=== PATIENT | female | born 1970 | race African-American/Black ===

== ENCOUNTER 2019-12-13 14:36 | Inpatient (IN) | payer MEDICAID ==
[~2019-12-13] VITALS: Ht 157.5 cm; Wt 87.5 kg
[2019-12-13 15:35] LABS: BASOPHILS 0.1 % (0-2); EOSINOPHILS 3.1 % (0-7); HEMATOCRIT 34.8 % (36.0-48.0); HEMOGLOBIN 11.5 g/dL (12-16); IMMATURE GRANULOCYTES 0.3 % (0-5); LYMPHOCYTES 31.5 % (15-50); MCH 26.9 pg (26.0-34.0); MCV 81.3 fL (80.0-100.0); MEAN PLATELET VOLUME 10.3 fL (7.4-10.4); MONOCYTES 5.7 % (2-11); NEUTROPHILS 59.3 % (40-80); PLATELET COUNT 221 10x3/uL (130-400); RBC 4.28 10x6/uL (4.00-5.40); RDW 15.7 % (11.5-14.5)
[2019-12-13 15:41] LABS: CALC OSMOLALITY 328 mosm/kg (275-300); CALCIUM 8.6 mg/dL (8.5-10.1); CARBON DIOXIDE 15.5 mmol/L (21.0-32.0); CHLORIDE - SERUM 105 mmol/L (98-107); CREATININE - SERUM 14.8 mg/dL (0.6-1.3); GLUCOSE 280 mg/dL (74-106); POTASSIUM - SERUM 5.2 mmol/L (3.5-5.1); SODIUM 141 mmol/L (136-145); UREA NITROGEN 118 mg/dL (7-18); eGFR NON AFRICAN AMERICAN 3 mL/min (90-120)
[2019-12-13 15:58] LABS: ALBUMIN 3.6 g/dL (3.4-5.0); ALKALINE PHOSPHATASE 108 U/L (30-120); ALT (SGPT) 15 U/L (10-68); BILIRUBIN - TOTAL 0.34 mg/dL (0.2-1.3); CKMB 6.2 U/L (0.0-3.6); CREATINE KINASE 200 UL (21-215); MAGNESIUM - SERUM 2.5 mg/dL (1.8-2.4); PRO BNP 6342 pg/mL (0-125); PROTEIN - SERUM 7.9 g/dL (6.4-8.2)
[2019-12-13 16:00] LABS: TROPONIN-I < 0.017 ng/mL (0.000-0.060)
--- NOTE | 2019-12-13 19:08 | NUR ---
REPORT TO FANNIE GARCIA AT THIS TIME.
[2019-12-13 20:30] VITALS: BP 195/95
[2019-12-14] VITALS (9 sets, daily range): BP systolic 141–189; BP diastolic 67–102; Ht 157.5 cm; Wt 87.5 kg
--- NOTE | 2019-12-14 00:17 | NUR ---
RECEIVED REPORT FROM TINY GARCIA IN ER AT 2214. ARRIVED TO FLOOR ON STRETCHER AT 2230. ALERT AND ORIENTED X4. REQUIRES WALKER AND PARTIAL ASSIT TO AMB TO B/R. ALL TOES AMPUTATED ON LEFT FOOT. DIME SIZE CALLUS ON PAD OF LEFT FOOT. IV TO RIGHT HAND SL.. LT ARM RESERVE R/T AVF. GOOD BRUIT AND TRILL. STATES SHE HAS NOT HAD DIALYSIS IN [address] RODRIGUEZ HERE TO SEE PATIENT. ALLERGY BAND AND FALL RISK BAND ON WRIST. DTR STATES SHE WILL STAY WITH HER MOTHER. ICE GIVEN TO PT. SOME EDEMA TO LOWER EXTREMITIES. PT STATES SHE IS LEGALLY TYRON. DENIES ANY NEEDS AT THIS TIME. ASSESSMENT COMPLETED.
--- NOTE | 2019-12-14 07:07 | NUR ---
PT LYING IN BED EYES CLOSED. CHEST RISING AND FALLING. DAUGHTER AT BEDSIDE. BED LOW. CL IN REACH. WILL CONTINUE WITH POC. DR. DODD STATES TO ME HE WANTS PT TO BE FIRST FOR HD TODAY. I VERBALIZED UNDERSTANDING.
[2019-12-14 07:19] LABS: INR 1.07 (0.85-1.17); PROTIME 13.8 SECONDS (11.6-15.0)
[2019-12-14 07:20] LABS: APTT 31.5 SECONDS (22.8-39.4)
[2019-12-14 07:30] LABS: BASOPHILS 0.1 % (0-2); EOSINOPHILS 3.4 % (0-7); HEMATOCRIT 27.9 % (36.0-48.0); IMMATURE GRANULOCYTES 0.3 % (0-5); LYMPHOCYTES 39.9 % (15-50); MCH 25.9 pg (26.0-34.0); MCHC 32.3 g/dL (31.0-37.0); MCV 80.2 fL (80.0-100.0); MEAN PLATELET VOLUME 10.7 fL (7.4-10.4); MONOCYTES 7.8 % (2-11); NEUTROPHILS 48.5 % (40-80); PLATELET COUNT 213 10x3/uL (130-400); RBC 3.48 10x6/uL (4.00-5.40); RDW 15.7 % (11.5-14.5); WBC 7.3 10x3/uL (4.8-10.8)
[2019-12-14 07:55] LABS: ALBUMIN 2.9 g/dL (3.4-5.0); ANION GAP 20.8 mmol/L (8-16); BILIRUBIN - TOTAL 0.28 mg/dL (0.2-1.3); CALCIUM 8.2 mg/dL (8.5-10.1); CARBON DIOXIDE 18.4 mmol/L (21.0-32.0); CREATININE - SERUM 15.7 mg/dL (0.6-1.3); MAGNESIUM - SERUM 2.5 mg/dL (1.8-2.4); PHOSPHOROUS 7.2 mg/dL (2.5-4.9); POTASSIUM - SERUM 5.2 mmol/L (3.5-5.1); THYROID STIMULATING HORMONE 1.79 uIU/mL (0.36-3.74)
[2019-12-14 07:57] LABS: % SATURATION 36 % (15-55); IRON 55 ug/dl (35-150); TOTAL IRON BIND CAPACITY 152 ug/dl (260-445); UNSAT IRON BIND CAPACITY 97 ug/dl (150-375)
--- NOTE | 2019-12-14 08:08 | NUR ---
CALLED AND SPOKE WITH CIARAN GARCIA IN DIALYSIS THAT DR. DODD STATES HE WANTS PT TO BE FIRST AND SHE VERBALIZED UNDERSTANDING.
--- NOTE | 2019-12-14 09:40 | NUR ---
PT TAKEN TO DIALYSIS VIA BED.
--- NOTE | 2019-12-14 13:40 | NUR ---
PT RECEIVING DIALYSIS ON DIALYSIS UNIT. DIALYSIS NURSE CALLED [facility] FOR STAT BS TO BE CHECKED. ED RN WENT DOWN TO DIALYSIS AND CHECKED BS AND IT WAS 167. DIALYSIS NURSE CALLED [facility] GONZALES D/T PT BEING SLOW TO RESPOND AND CONFUSED SUDDENLY. SVITLANA GONZALES STATED TO DIALYSIS NURSE TO CALLED [facility]. THIS NURSE ALONG WITH [facility] TEAM ARRIVED AT THIS TIME TO DIALYSIS UNIT. PHONE WAS GIVEN TO ME TO SPEAK WITH SVITLANA GONZALES SHE STATED TO ME TO ORDER A STAT BMP, WHEN PT GETS BACK TO FLOOR CHECK BLOOD PRESSURE AND CALL BACK IN AN HOUR TO LET HER KNOW HOW PT IS DOING AND IF SHE HAS NOT IMPROVED SHE WILL ORDER A CAT SCAN OF HER HEAD. I VERBALIZED UNDERSTANDING. AT 1345 DR. OLIVIA ARRIVED TO UNIT AND ASSESSED PT AND STATES SHE HAS DYSEQUILIBRIUM FROM HAVING TOO MUCH FLUID PULLED OFF TOO FAST. HE THEN ASKED DIALYSIS NURSE HOW MUCH SHE TOOK OFF AND SHE STATED 4L AND HE STATED THAT WAS TOO MUCH. SHE VERBALIZED UNDERSTANDING TO HIM AND STATED SHE WAS JUST FOLLOWING DOCTORS ORDERS. HE DID NOT GIVE A RESPONSE TO HER. BP NOW 196/100 HR 83. MARINE STEWARD FROM MED 2 BROUGHT GLOBAL ANALYTICS HEAD AND PLACED ON PT. PT IS RUNNING SINUS RHYTHM. WILL TAKE PT BACK UP TO ROOM 2104.
--- NOTE | 2019-12-14 13:50 | MORECARE ---
CASE MANAGEMENT DISCHARGE SUMMARY PATIENT: JUSTA COLIN UNIT: [id number] ADM DATE: 12/13/19 AGE: 49 : [birth year] SEX: F ROOM/BED: D.2104 AUTHOR: JESSIE KENNY PHYSICIAN: REFERRING PHYSICIAN: EDGAR OLIVIA MD DATE OF SERVICE: 12/14/19 Discharge Plan Patient Name: JUSTA COLIN Facility: [facility]:[place] : 1970 Planned Disposition: Anticipated Discharge Date: Discharge Date: Expected LOS: Initial Reviewer: [id number] Initial Review Date: 12/14/2019 Generated: 12/14/19 2:50 pm Comments DCP- Discharge Planning Updated by [id number]: Randy Godfrey on 12/14/19 12:[address] Patient Name: JUSTA COLIN Admission Status: ER Accout number: [id number] Admission Date: 12-13-2019 : 1970 Admission Diagnosis: Attending: EDGAR OLIVIA Current LOS: 1 Anticipated DC Date: Planned Disposition: Primary Insurance: UNINSURED DISCOUNT PLAN Discharge Planning Comments: CM RECEIVED ORDER FOR PLACEMENT, ATTEMPTED TO MEET WITH PT FOR INITIAL ASSESSMENT OF DISCHARGE NEEDS. NOTIFED PT IS IN DIALYSIS PT WAS NOT IN ROOM AT APPROXIMATELY 1300 HOURS. CM TO ATTEMPT TO ADDRESS ORDER AND COMPLETE ASSESSMENT OF PT AT A LATER TIME. Flight Engineer: Randy Godfrey Patient Name: JUSTA COLIN Page [phone] at 1350 All edits/amendments must be made on the electronic document DICTATION DATE: 12/14/19 1350 TRUST MANAGER ASSISTANT: AMRIT 12/14/19 1350 RPT#: [id number] DC DATE: STATUS: ADM IN [facility] [address] [place] [address] END OF REPORT
--- NOTE | 2019-12-14 14:10 | NUR ---
PT BROUGHT BACK TO FLOOR VIA BED. STILL NOT ALERT AND ORIENTED AND SLOW TO RESPOND AND CAN NOT GIVE ANSWERS TO QUESTIONS. PT'S DAUGHTER AT BEDSIDE AND EXPLAINED TO HER THAT PT WAS RECEIVING DIALYSIS AND THEY TOOK TOO MUCH OFF TOO QUICKLY AND SHE HAD MENTAL STATUS CHANGES AND DIALYSIS CALLED A [facility] ANDTHE DOCTOR CAME DOWN THERE AND HE STATES IT WILL TAKE A DAY OR TWO FOR PT TO COME BACK AROUND TO HER NORMAL SELF. I ALSO TSATED TO HER TO TAKE IT EASY ON PT WITH EATING AND DRINKING UNTIL SHE COMES MORE ALERT AND AWAKE. DAUGHTER VERBALIZED UNDERSTANDING. CHECKED BP AND IT IS 189/102. IV HYDRALAZINE GIVEN THROUGH RIGHT HAND 22G IV. WILL CONTINUE TO MONITOR. BED LOW. CL IN REACH.
[2019-12-14 14:45] LABS: CREATININE - SERUM 6.5 mg/dL (0.6-1.3); POTASSIUM - SERUM 3.3 mmol/L (3.5-5.1)
[2019-12-14 14:46] LABS: ANION GAP 15.4 mmol/L (8-16); CALCIUM 9.2 mg/dL (8.5-10.1); CARBON DIOXIDE 25.9 mmol/L (21.0-32.0)
--- NOTE | 2019-12-14 14:57 | NUR ---
PT MENTAL STATUS STILL SLOW TO RESPOND AND CANNOT ANSWER QUESTIONS AND STILL CONFUSED. CALLED SVITLANA GONZALES SHE STATED FOR ME TO DO AND DID NTO RECEIVE AN ANSWER BUT LEFT VOICEMAIL.
--- NOTE | 2019-12-14 15:52 | NUR ---
NOTIFIED SVITLANA GONZALES OF PT'S STATUS AND BP AWAITING RESPONSE.
--- NOTE | 2019-12-14 15:58 | NUR ---
SVITLANA GONZALES STATES IF DR. OLIVAI DOES NOT WANT CT SCAN THEN SHE WON'T ORDER ONE JUST CONTINUE TO MONITOR PT.
--- NOTE | 2019-12-14 17:13 | NUR ---
SCD'S PLACED ON PT'S LEGS BILATERALLY.
--- NOTE | 2019-12-14 17:15 | NUR ---
RESTS IN BED WITH EYES CLOSED. CALL LIGHT IN REACH. WILL MONITOR NEEDS.
[2019-12-15 05:17] LABS: BASOPHILS 0.2 % (0-2); EOSINOPHILS 2.9 % (0-7); HEMATOCRIT 30.4 % (36.0-48.0); HEMOGLOBIN 9.9 g/dL (12-16); IMMATURE GRANULOCYTES 0.2 % (0-5); LYMPHOCYTES 42.3 % (15-50); MCH 26.1 pg (26.0-34.0); MCHC 32.6 g/dL (31.0-37.0); MEAN PLATELET VOLUME 10.4 fL (7.4-10.4); MONOCYTES 8.6 % (2-11); NEUTROPHILS 45.8 % (40-80); PLATELET COUNT 210 10x3/uL (130-400); RDW 15.5 % (11.5-14.5); WBC 8.4 10x3/uL (4.8-10.8)
[2019-12-15 05:40] LABS: ALBUMIN 2.9 g/dL (3.4-5.0); BILIRUBIN - TOTAL 0.43 mg/dL (0.2-1.3); CALCIUM 8.3 mg/dL (8.5-10.1); CARBON DIOXIDE 23.9 mmol/L (21.0-32.0); PHOSPHOROUS 5.4 mg/dL (2.5-4.9); PROTEIN - SERUM 6.8 g/dL (6.4-8.2)
[2019-12-15 05:44] LABS: CREATININE - SERUM 8.8 mg/dL (0.6-1.3); POTASSIUM - SERUM 3.9 mmol/L (3.5-5.1)
--- NOTE | 2019-12-15 07:15 | PN ---
PATIENT:JUSTA COLIN MEDICAL RECORD: [id number] LOCATION:D. D.210 ADMISSION DATE: 12/13/19 PROGRESS NOTE DATE OF SERVICE: 12/14/2019 SUBJECTIVE: This is a 49-year-old female who was admitted to the hospital yesterday after not receiving dialysis for reportedly 2 weeks. She reports that she has relocated here from [place], [place] from a [place] dialysis facility there. The patient underwent dialysis today and had a type of reported reaction, which sounds like it is a conversion reaction of some sort rather than a dysequilibrium. The family member was in the room with the patient when evaluated. The patient upon my evaluation had some inappropriate affect and giggling or laughing, really odd type of behavior while I was discussing in this. The family member said that the patient did return to her baseline. The dialysis nurses informed me later this evening that what had transpired and it really did not sound like it was significant for a true dysequilibrium syndrome. This patient has diabetes type 2 with multiple in-organ complications including end-stage renal disease, retinopathy, nephropathy and has not again been apparently very compliant with dialysis. We are waiting for results and we are waiting for reportedly placement in a [facility]. The patient has a left foot transmetatarsal amputation. She has been evaluated, treatment plan reviewed, and discussed again about fall precautions and her role and goal of care. OBJECTIVE: VITAL SIGNS: Today have been in the 160s and 170s. LABORATORY DATA: Reveal potassium 5.2, sodium 140, creatinine 15.7. Prior to dialysis, bicarbonate was 18.4, glucose 177. ProBNP was 6342 on admission. Hemoglobin was 9.0. INR 1.07. IMPRESSION: 1. End-stage renal disease status post resuming dialysis today. 2. Suspect some type of anxiety or psychiatric disorder with the odd behavior that the patient exhibited. 3. Diabetes type 2 with complications. 4. Metabolic acidosis. 5. Obstructive sleep apnea. 6. Obesity. 7. Hyperparathyroidism of renal disease. 8. Volume overload and congestive heart failure. 9. Incomplete database. RECOMMENDATIONS: Attempt dialysis support again. Counseling has been done about plans. May need to have mental health evaluation to evaluate the patient to see if we are missing anything that would be of benefit or opportunity to help the patient. TRANSINT:[id number] Voice Confirmation ID: [id number] DOCUMENT ID: [id number] PROGRESS NOTE [id number] JUSTA COLIN PAUL E., MD at 0715 CC: YOLIS DODD MD [id number] DICTATION DATE: 12/14/192114 [address] REPORTER: 12/15/19 0659 ADM IN [facility] [address] [place] [id number]
--- NOTE | 2019-12-15 07:15 | CN ---
PATIENT NAME:JUSTA COLIN MEDICAL RECORD: [id number] : [birth year] LOCATION:DShea D.2104 ADMIT DATE: 12/13/19 ACCOUNT: [id number] CONSULTING PHYSICIAN: RAD RODRIGUEZ MD REFERRING PHYSICIAN: EDGAR OLIVIA MD DATE OF CONSULTATION: 12/13/2019 HISTORY OF PRESENT ILLNESS: This patient presented to the Emergency Room after being here in the area for over a week. She says she had not had dialysis in 2 weeks and came from [place], [place] from the [facility] facility. The patient says she urgently moved down here and has been waiting for [facility] to contact her for dialysis support. Nephrology services were contacted to further evaluate and dialyze the patient and need for dialysis support. The patient is with the family member present in the room and nurse was present for the entire interview. She is not in any distress at this time. She reports no other complaints. PAST MEDICAL AND SURGICAL HISTORY: Pertinent for: 1. Left upper arm graft placement with a declot procedure approximately 2 weeks ago per her report. 2. End-stage renal disease now for about a year, on dialysis support through the left upper arm access. She denies any home dialysis support or peritoneal dialysis support. 3. 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 4. Abdominal obesity. 5. Obstructive sleep apnea. 6. Anemia. 7. Iron deficiency. 8. Anemia of chronic kidney disease and iron deficiency. 9. Hyperparathyroidism of renal disease. SOCIAL HISTORY: No tobacco or ethanol use. ALLERGIES: REPORTED LISINOPRIL. MEDICATIONS: Include clonidine. At this time, we are still reviewing prior medical records. PHYSICAL EXAMINATION: VITAL SIGNS: Reveal temperature 97.3 degrees, pulse rate 90, blood pressure 182/107, pulse ox 94, O2 sat. GENERAL: She is alert, appropriate, very pleasant. She has anasarca and you can tell that she has retinopathy in both eyes. CARDIAC: She has no lift, but she has an S4 present. She has no heave on her cardiac exam. ABDOMEN: Obese, but nontender and soft. Left upper arm graft with thrill and bruit. EXTREMITIES: She has no hand ischemia. SKIN: Without any bruising or ecchymosis. She is breathing without any difficulty. CONSULT REPORT [id number] [facility] DIAGNOSTIC TESTS: Reveal white cell count 8, hemoglobin 11.5 and platelet count is 221. Sodium 141, potassium 5.2, chloride 105, bicarbonate 15.5, BUN is 118, creatinine 14.8, glucose 280, calcium 8.6, magnesium 2.5. CK of 200, alkaline phosphatase is 108. Troponin less than 0.017. Total protein 7.9, albumin 3.6. IMPRESSION: 1. End-stage renal disease with missed dialysis for about 2 weeks. 2. Volume overload with congestive heart failure, decompensated with elevated BNP of 6342. 3. Moderate malnutrition. 4. Abdominal obesity. 5. Obstructive sleep apnea. 6. Hyperparathyroidism, renal disease. 7. Anemia of iron deficiency and chronic renal disease. 8. Left upper arm graft placement with previous declot procedure about 2 weeks ago per report. 9. Incomplete database at present. RECOMMENDATIONS: Dialysis support for tomorrow. The patient was trying to get into the [facility] for chronic dialysis support. Continue support and monitor for any other needs. As far as blood pressure control, it is probably will be volume responsive with dialysis. PTH level will need to be checked. TRANSINT:[id number] Voice Confirmation ID: [id number] DOCUMENT ID: [id number] RAD RODRIGUEZ MD at 0715 CC: YOLIS DODD MD [id number] DICTATION DATE: 12/14/19 0013 FRAMING MANAGER: 12/14/19 0726 ADM IN [facility] [address] [place] [address]
[2019-12-15 08:47] VITALS: BP 137/59
--- NOTE | 2019-12-15 09:54 | MORECARE ---
CASE MANAGEMENT DISCHARGE SUMMARY PATIENT: JUSTA COLIN UNIT: [id number] ADM DATE: 12/13/19 AGE: 49 : [birth year] SEX: F ROOM/BED: D.2104 AUTHOR: EFRAÍN,DOC PHYSICIAN: REFERRING PHYSICIAN: EDGAR OLIVIA MD DATE OF SERVICE: 12/15/19 Discharge Plan Patient Name: JUSTA COLIN Facility: [facility]:[place] : 1970 Planned Disposition: Anticipated Discharge Date: Discharge Date: Expected LOS: Initial Reviewer: [email or web address] Initial Review Date: 12/14/2019 Generated: 12/15/19 10:53 am Comments DCP- Discharge Planning Updated by [email or web address]: Randy Godfrey on 12/15/19 8:[address] Patient Name: JUSTA COLIN Encounter No: [id number] : 1970 Primary Insurance: UNINSURED DISCOUNT PLAN Anticipated DC Date: Planned Disposition: External Planned Provider: : DCP follow-up note: CM ATTEMPTED TO MEET WITH PT FOR INITIAL ASSESSMENT OF DISCHARGE NEEDS. PT WAS IN THE BATHROOM AT APPROXIMATELY 0930 HOURS. CM TO ATTEMPT ASSESSMENT OF PT AT A LATER TIME. TONI Lujan DCP- Discharge Planning Updated by [email or web address]: Randy Godfrey on 12/15/19 8:[address] Patient Name: JUSTA COLIN Encounter No: [id number] : 1970 Primary Insurance: UNINSURED DISCOUNT PLAN Anticipated DC Date: Planned Disposition: External Planned Provider: : LATE ENTRY FROM 12-14-19, 1452 HOURS: DCP follow-up note: ON 12-14-19, CM ATTEMPTED TO MEET WITH PT FOR INITIAL ASSESSMENT OF DISCHARGE NEEDS. PT WAS NOT IN ROOM AT APPROXIMATELY 1452 HOURS. CM TO ATTEMPT ASSESSMENT OF PT AT A LATER TIME. TONI LUJAN DCP- Discharge Planning Updated by [id number]: Randy Godfrey on 12/14/19 12:[address] Patient Name: JUSTA COLIN Admission Status: ER Accout number: [id number] Admission Date: 12-13-2019 : 1970 Admission Diagnosis: Attending: EDGAR OLIVIA Current LOS: 1 Anticipated DC Date: Planned Disposition: Primary Insurance: UNINSURED DISCOUNT PLAN Discharge Planning Comments: CM RECEIVED ORDER FOR PLACEMENT, ATTEMPTED TO MEET WITH PT FOR INITIAL ASSESSMENT OF DISCHARGE NEEDS. NOTIFED PT IS IN DIALYSIS PT WAS NOT IN ROOM AT APPROXIMATELY 1300 HOURS. CM TO ATTEMPT TO ADDRESS ORDER AND COMPLETE ASSESSMENT OF PT AT A LATER TIME. Tool Filer: Randy Godfrey Last DP export: 12/14/19 12:50 p Patient Name: JUSTA COLIN Page [id number] at 0954 All edits/amendments must be made on the electronic document DICTATION DATE: 12/15/19952 EXTERMINATOR HELPER: AMRIT 12/15/1954 RPT#: [id number] DC DATE: STATUS: ADM IN [facility] [address] [place] [address] END OF REPORT
[2019-12-15 11:10] LABS: HEPATITIS C ANTIBODY <0.1 S/CO RAT (0.0-0.9)
[2019-12-15 12:42] VITALS: BP 152/72
--- NOTE | 2019-12-15 14:30 | MORECARE ---
CASE MANAGEMENT DISCHARGE SUMMARY PATIENT: JUSTA COLIN UNIT: [id number] ADM DATE: 12/13/19 AGE: 49 : 68 SEX: F ROOM/BED: D.2104 AUTHOR: EFRAÍN,DOC PHYSICIAN: REFERRING PHYSICIAN: EDGAR OLIVIA MD DATE OF SERVICE: 12/15/19 Discharge Plan Patient Name: JUSTA COLIN Facility: [facility]:[place] : 1970 Planned Disposition: Home Anticipated Discharge Date: Discharge Date: Expected LOS: Initial Reviewer: [email or web address] Initial Review Date: 12/14/2019 Generated: 12/15/19 3:29 pm DCP- Discharge Planning Updated by [id number]: Randy Godfrey on 12/15/19 8:[address] Patient Name: JUSTA COLIN Encounter No: [id number] : 1970 Primary Insurance: UNINSURED DISCOUNT PLAN Anticipated DC Date: Planned Disposition: External Planned Provider: : DCP follow-up note: CM ATTEMPTED TO MEET WITH PT FOR INITIAL ASSESSMENT OF DISCHARGE NEEDS. PT WAS IN THE BATHROOM AT APPROXIMATELY 0930 HOURS. CM TO ATTEMPT ASSESSMENT OF PT AT A LATER TIME. TONI Lujan DCP- Discharge Planning Updated by [email or web address]: Randy Godfrey on 12/15/19 8:[address] Patient Name: JUSTA COLIN Encounter No: [id number] : 1970 Primary Insurance: UNINSURED DISCOUNT PLAN Anticipated DC Date: Planned Disposition: External Planned Provider: : LATE ENTRY FROM 12-14-19, 1452 HOURS: DCP follow-up note: ON 12-14-19, CM ATTEMPTED TO MEET WITH PT FOR INITIAL ASSESSMENT OF DISCHARGE NEEDS. PT WAS NOT IN ROOM AT APPROXIMATELY 1452 HOURS. CM TO ATTEMPT ASSESSMENT OF PT AT A LATER TIME. TONI LUJAN DCP- Discharge Planning Updated by [email or web address]: Randy Godfrey on 12/14/19 12:[address] Patient Name: JUSTA COLIN Admission Status: ER Accout number: [id number] Admission Date: 12-13-2019 : 1970 Admission Diagnosis: Attending: EDGAR OLIVIA Current LOS: 1 Anticipated DC Date: Planned Disposition: Primary Insurance: UNINSURED DISCOUNT PLAN Discharge Planning Comments: CM RECEIVED ORDER FOR PLACEMENT, ATTEMPTED TO MEET WITH PT FOR INITIAL ASSESSMENT OF DISCHARGE NEEDS. NOTIFED PT IS IN DIALYSIS PT WAS NOT IN ROOM AT APPROXIMATELY 1300 HOURS. CM TO ATTEMPT TO ADDRESS ORDER AND COMPLETE ASSESSMENT OF PT AT A LATER TIME. Tire Room Supervisor: Randy Godfrey DCPIA - Discharge Planning Initial Assessment Updated by [email or web address]: Randy Godfrey on 12/15/19 2:24 pm * Is the patient Alert and Oriented? Yes * How many steps to enter\exit or inside your home? * PCP NONE * Pharmacy [facility] IN [place] * Preadmission Environment Home with Family * ADLs Partial Dependent * Partial ADLs (Assistance needed) Medication Management * Equipment Walker * Other Equipment REPORTS WALKER IS BROKEN NO MEDICAL EQUIPMENT PROVIDER PREFERENCE * List name and contact numbers for known caregivers / representatives who currently or will assist patient after discharge: ALFREDO CAT, DTR, FRANCISCO JAVIER COLIN, SISTER, * Verbal permission to speak to the caregivers and representatives has been obtained from the patient. Yes * Community resources currently utilized Other * Please name any agencies selected above. LAST OUTPATIENT DIALYSIS UNIT IN [place], [place]. [facility], [facility] * Additional services required to return to the preadmission environment? Yes * Can the patient safely return to the preadmission environment? Yes * Has this patient been hospitalized within the prior 30 days at any hospital? No Last DP export: 12/15/19 8:53 a Patient Name: JUSTA COLIN Page [phone] at 1430 All edits/amendments must be made on the electronic document DICTATION DATE: 12/15/19 142 FLUXER: AMRIT 12/15/19 142 RPT#: [id number] DC DATE: STATUS: ADM IN [address] [place] [address] END OF REPORT
--- NOTE | 2019-12-15 14:40 | MORECARE ---
CASE MANAGEMENT DISCHARGE SUMMARY PATIENT: JUSTA COLIN UNIT: [id number] ADM DATE: 12/13/19 AGE: 49 : 68 SEX: F ROOM/BED: D.2104 AUTHOR: EFRAÍN,DOC PHYSICIAN: REFERRING PHYSICIAN: EDGAR OLIVIA MD DATE OF SERVICE: 12/15/19 Discharge Plan Patient Name: JUSTA COLIN Facility: [facility]:[place] : 1970 Planned Disposition: Home Anticipated Discharge Date: Discharge Date: Expected LOS: Initial Reviewer: [email or web address] Initial Review Date: 12/14/2019 Generated: 12/15/19 3:40 pm DCP- Discharge Planning Updated by [id number]: Randy Godfrey on 12/15/19 1:[address] Patient Name: JUSTA COLIN Admission Status: ER Accout number: [id number] Admission Date: 12-13-2019 : 1970 Admission Diagnosis: Attending: EDGAR OLIVIA Current LOS: 2 Anticipated DC Date: Planned Disposition: Home Primary Insurance: MEDICAID [place] PENDING Discharge Planning Comments: CM MET WITH PT IN ROOM TO DISCUSS ORDER FOR PLACEMENT, DISCHARGE PLANNING AND NEEDS. PT DECLINES ANY PLACEMENT, REPORTS HAVING SAFE PLACE TO STAY; REPORTS LIVING AT HOME DEPENDENTLY WITH HER SISTER IN [place]. PT'S SISTER AND DAUGHTER HELP PT WITH MEDICATION MANAGEMENT. CM VERFIED HOME ADDRESS OF [address] [place] [address] IN [place]. PT HAS A BROKEN WALKER WITH NO MEDICAL EQUIPMENT PROVIDER PREFERENCE AND NO OUTSIDE SERVICES ASSISTING IN THE HOME. PT REPORTS MOVING FROM [place] ONE WEEK AGO ON EMERGENCY BASIS. PT DID NOT HAVE TIME TO ARRANGE OUTPATIENT DIALYSIS, STATES SHE ASKED [facility]. TO SEND REC[facility]DS TO [facility] IN [place]. PT HAS NOT CALLED SOCIAL SECURITY DISABILITY TO CHANGE HER ADDRESS OF YET BUT PLANS TO DO SO TOMORROW. PT STATES SHE HAD MEDICAID IN [place] AND MET WITH A ANDREAS FROM [facility] WHO IS GOING TO HELP AND DIRECTED HER TO CALL SOCIAL SECURITY. CM PROVIDED PT WITH THE NATIONAL SOCIAL SECURITY NUMBER WELL THE [facility] OF SOCIAL SECURITY PHONE NUMBER. CM DISCUSSED AVAILABILITY OF HOME HEALTH, REHAB SERVICES AND MEDICAL EQUIPMENT. PT DENIES DISCHARGE NEEDS, REPORTS HER FAMILY WILL PICK HER UP FOR DISCHARGE HOME. CM REVIEWED CHART AND SPOKE TO JANET MACKEY WHO PROVIDED ORDER FOR OUTPATIENT DIALYSIS UNIT PLACEMENT. CM NOTIFIED [facility], , AND FAXED FACE SHEET TO [facility] AT [phone]. PT DECLINES PLACEMENT, REPORTS PLAN TO DISCHARGE HOME WITH ADULT DAUGHTER AND SISTER. CM WAITING OUTPATIENT DIALYSIS CLINIC ARRANGEMENT. Choke Setter: Randy Godfrey DCP- Discharge Planning Updated by [email or web address]: Randy Godfrey on 12/15/19 8:[address] Patient Name: JUSTA COLIN Encounter No: [id number] : 1970 Primary Insurance: UNINSURED DISCOUNT PLAN Anticipated DC Date: Planned Disposition: External Planned Provider: : DCP follow-up note: CM ATTEMPTED TO MEET WITH PT FOR INITIAL ASSESSMENT OF DISCHARGE NEEDS. PT WAS IN THE BATHROOM AT APPROXIMATELY 0930 HOURS. CM TO ATTEMPT ASSESSMENT OF PT AT A LATER TIME. TONI Lujan DCP- Discharge Planning Updated by [email or web address]: Randy Godfrey on 12/15/19 8:[address] Patient Name: JUSTA COLIN Encounter No: [id number] : 1970 Primary Insurance: UNINSURED DISCOUNT PLAN Anticipated DC Date: Planned Disposition: External Planned Provider: : LATE ENTRY FROM 12-14-19, 1452 HOURS: DCP follow-up note: ON 12-14-19, CM ATTEMPTED TO MEET WITH PT FOR INITIAL ASSESSMENT OF DISCHARGE NEEDS. PT WAS NOT IN ROOM AT APPROXIMATELY 1452 HOURS. CM TO ATTEMPT ASSESSMENT OF PT AT A LATER TIME. TONI LUJAN DCP- Discharge Planning Updated by [email or web address]: Randy Godfrey on 12/14/19 12:[address] Patient Name: JUSTA COLIN Admission Status: ER Accout number: [id number] Admission Date: 12-13-2019 : 1970 Admission Diagnosis: Attending: EDGAR OLIVIA Current LOS: 1 Anticipated DC Date: Planned Disposition: Primary Insurance: UNINSURED DISCOUNT PLAN Discharge Planning Comments: CM RECEIVED ORDER FOR PLACEMENT, ATTEMPTED TO MEET WITH PT FOR INITIAL ASSESSMENT OF DISCHARGE NEEDS. NOTIFED PT IS IN DIALYSIS PT WAS NOT IN ROOM AT APPROXIMATELY 1300 HOURS. CM TO ATTEMPT TO ADDRESS ORDER AND COMPLETE ASSESSMENT OF PT AT A LATER TIME. Choke Setter: Randy Godfrey DCPIA - Discharge Planning Initial Assessment Updated by [email or web address]: Randy Godfrey on 12/15/19 2:24 pm * Is the patient Alert and Oriented? Yes * How many steps to enter\exit or inside your home? * PCP NONE * Pharmacy [facility] IN [place] * Preadmission Environment Home with Family * ADLs Partial Dependent * Partial ADLs (Assistance needed) Medication Management * Equipment Walker * Other Equipment REPORTS WALKER IS BROKEN NO MEDICAL EQUIPMENT PROVIDER PREFERENCE * List name and contact numbers for known caregivers / representatives who currently or will assist patient after discharge: ALFREDO CAT, DTR, FRANCISCO JAVIER COLIN, SISTER, * Verbal permission to speak to the caregivers and representatives has been obtained from the patient. Yes * Community resources currently utilized Other * Please name any agencies selected above. LAST OUTPATIENT DIALYSIS UNIT IN [place], [place]. [facility], [facility] * Additional services required to return to the preadmission environment? Yes * Can the patient safely return to the preadmission environment? Yes * Has this patient been hospitalized within the prior 30 days at any hospital? No External Providers External Provider: OTHER-OTHER Next Contact Date: 12/15/2019 Service Request Date: Service Type: Resolution: Reviewer: Comments: Last DP export: 12/15/19 1:30 p Patient Name: JUSTA COLIN Page [phone] at 1440 All edits/amendments must be made on the electronic document DICTATION DATE: 12/15/19 1440 RECEIVING TELLER: AMRIT 12/15/19 1440 RPT#: [id number] DC DATE: STATUS: ADM IN [facility] [address] [place] [address] END OF REPORT
[2019-12-15 17:14] VITALS: BP 127/49
[2019-12-15 20:30] VITALS: BP 139/69
[2019-12-16 05:15] LABS: BASOPHILS 0.1 % (0-2); EOSINOPHILS 3.8 % (0-7); HEMATOCRIT 29.8 % (36.0-48.0); HEMOGLOBIN 9.7 g/dL (12-16); IMMATURE GRANULOCYTES 0.2 % (0-5); MCH 26.4 pg (26.0-34.0); MCHC 32.6 g/dL (31.0-37.0); MCV 81.2 fL (80.0-100.0); MEAN PLATELET VOLUME 10.8 fL (7.4-10.4); MONOCYTES 10.8 % (2-11); NEUTROPHILS 38.1 % (40-80); PLATELET COUNT 221 10x3/uL (130-400); RBC 3.67 10x6/uL (4.00-5.40); RDW 15.3 % (11.5-14.5); WBC 8.8 10x3/uL (4.8-10.8)
[2019-12-16 06:01] LABS: ALBUMIN 2.9 g/dL (3.4-5.0); ANION GAP 15.8 mmol/L (8-16); BILIRUBIN - TOTAL 0.18 mg/dL (0.2-1.3); CARBON DIOXIDE 24.1 mmol/L (21.0-32.0); CREATININE - SERUM 10.9 mg/dL (0.6-1.3); MAGNESIUM - SERUM 2.3 mg/dL (1.8-2.4); POTASSIUM - SERUM 3.9 mmol/L (3.5-5.1); PROTEIN - SERUM 7.1 g/dL (6.4-8.2)
--- NOTE | 2019-12-16 07:54 | PN ---
PATIENT:JUSTA COLIN MEDICAL RECORD: [id number] LOCATION:D.M2 D.210 ADMISSION DATE: 12/13/19 PROGRESS NOTE DATE OF SERVICE: 12/15/2019 NEPHROLOGY PROGRESS NOTE DATE OF ADMISSION: 12/13/2019 ROOM NUMBER: 2104 in the [facility] in [place], [place]. SUBJECTIVE: Ms. Justa Colin is a 49-year-old female, who is on maintenance dialysis support through a left upper arm graft for about a year per her report in [place], [place]. The patient presented after about 2 weeks of not dialyzing. She underwent dialysis yesterday and had undergone a conversion reaction according to the reports. This did not seem to be a dysequilibrium reaction. The patient is back to her baseline per her family member present in the room for the interview with a nurse present today. She was evaluated, treatment plan reviewed, and discussed about the plans. The patient says she is back to her baseline, also has no complaints. She says she just thinks that her volume status is close to being where it is appropriate. OBJECTIVE: VITAL SIGNS: Today are good. Blood pressure is 120s-130s. GENERAL: She is in no apparent distress. No breathing difficulty. She still has some leg edema, chronic changes suggestive of chronic diabetic disease. LABORATORY AND DIAGNOSTIC TESTS: Reveal a white cell count of 8.4, hemoglobin of 9.9, platelet count is 210,000. The chemistry was not done today. As far as imaging studies, chest x-ray was done on December 14 that revealed mild pulmonary edema. IMPRESSION: 1. End-stage renal disease, missed dialysis sessions. 2. Volume overload that is improving with volume removal. 3. Anemia. 4. Hypertension. 5. Sleep apnea. RECOMMENDATIONS: Dialysis for tomorrow. I have discussed with the patient about the risks of dialysis. I have asked her about if she has had any mental health issues in the past. Because she had a little bit of inappropriate behavior last night, when I discussed with her she was giggling and very appropriate and decided that mental health should come see her and make sure we are not missing anything. She says that she has not had any issues before, however, her history has been inconsistent. Plan for dialysis support tomorrow, watching for any kind of anxiety or disruptive behavior or conversion reaction. I have discussed with her about checking into the [facility] as far as acceptance for her chair slot time. The patient says she has been waiting on this and hopefully tomorrow, we will find out, so she can be transitioned home. TRANSINT:[id number] Voice Confirmation ID: [id number] DOCUMENT ID: [id number] PROGRESS NOTE [id number] JUSTA COLIN PAUL E., MD at 0754 CC: YOLIS DODD MD [id number] DICTATION DATE: 12/15/192027 METEOROLOGIST LIAISON: 12/16/19 0708 ADM IN [facility] [address] [id number]
[2019-12-16 08:22] VITALS: BP 175/85
[2019-12-16 13:19] VITALS: BP 154/70
--- NOTE | 2019-12-16 13:30 | NUR ---
Nutrition Follow-up: Pt reports eating >50% of breakfast this AM. C/o nausea without vomiting. Reports that she had diarrhea yesterday but none today. Will try Nepro. Diet: Renal ADA No new wt; last wt: 230# (12/14) Labs noted: K+ 3.9, Glu 144, Ca 8.0, PO4 7.0, Alb 2.9 Meds noted: Lomotil, Humalog, Renagel, Pepcid -Nepro sent with lunch today for pt trial. -Need new wt; noted daily wts ordered. -RD following.
--- NOTE | 2019-12-16 14:36 | EC ---
PATIENT:JUSTA COLIN DATE OF SERVICE: 12/13/19 SEX: F MEDICAL RECORD: [id number] DATE OF : [birth year] LOCATION:D.M2 D.210 AGE OF PATIENT: 49 ADMISSION DATE: 12/13/19 REFERRING PHYSICIAN: INTERPRETING PHYSICIAN: JEFFERSON VELASQUEZ MD ECHOCARDIOGRAM REPORT ECHO CHARGES 4 ECHO COMPLETE Date: 12/14/19 CLINICAL DIAGNOSIS: DYSPNEA ECHOCARDIOGRAPHIC MEASUREMENTS (adult normal given) AC root (d.<3.7cm) 3.2 cm LV Septum d (<1.2 cm> 1.7 cm Valve Excursion 1.9 cm LV Septum (systole) 2.2 cm Left Atria (s.<4.0cm> 3.1 cm LVPW d(<1.2cm) 1.5 cm RV (d.<2.3cm) 3.1 cm LVPW (sytole) 2.4 cm LV diastole(<5.6CM) 3.7 cm MV E-F(>70mm/sec) cm LV systole 1.5 cm LVOT Diameter 1.9 cm MV exc.(>10mm) cm Est.ejection fraction (50-75%) % DOPPLER: LVIT cm/sec A 102 cm/sec E 70.0 cm/sec LA cm/sec RVSP 38.4 mmHg LVOT 88.0 cm/sec AOP1/2T m/s Asc. Ao 163 cm/sec RVOT 71.0 cm/sec RA cm/sec PA 135 cm/sec AV Gradient Peak 11.0 mmHg AV Mean 5.4 mmHg AV Area 2.0 cm MV Gradient Peak 6.7 mmHg MV Mean 2.6 mmHg MV Area cm COMMENTS: Materials Planner: Marco A LANEOE Senior Housekeeper: 1 Dr. Velasquez TAPE# PACS Pericardial Effusion N DATE OF SERVICE: 12/14/2019 PROCEDURE: Echocardiogram. FINDINGS: 1. Left ventricular chamber size is within normal limits. Left ventricular systolic function is normal. Overall ejection fraction estimated at 55%. 2. Left atrium, right atrium, and right ventricle chamber sizes are within normal limits. 3. Valvular structures have normal structure and motion. ECHOCARDIOGRAM REPORT [id number] JUSTA COLIN 4. Doppler interrogation reveals no significant valvular insufficiency or stenosis. 5. No evidence of pericardial effusion or left ventricular thrombus. TRANSINT:[id number] Voice Confirmation ID: [id number] DOCUMENT ID: [id number] JEFFERSON VELASQUEZ MD at 1436 CC: [id number] DICTATION DATE: 12/14/19 1543 MULTIMEDIA SERVICES MANAGER: 12/14/19 1654 ADM IN [facility] [address] [id number]
--- NOTE | 2019-12-16 19:19 | NUR ---
I have reviewed this patient and I concur with the Shift Assessment completed by the Licensed Practical Nurse today this shift.
--- NOTE | 2019-12-16 20:00 | NUR ---
A&O X 4. PT IS BLIND. LEFT FOOT HAS TOES AMPUTATED. PT AMBULATES WITH WALKER. DENIES N/V/PAIN. FAMILY AT BEDSIDE. WILL CONTINUE TO MONITOR.
[2019-12-16 20:16] VITALS: BP 144/80
[2019-12-17] VITALS: BP 130/67
--- NOTE | 2019-12-17 02:05 | NUR ---
I have reviewed this patient and I concur with the Shift Assessment completed by the Licensed Practical Nurse today this shift.
[2019-12-17 05:06] LABS: BASOPHILS 0.1 % (0-2); EOSINOPHILS 4.6 % (0-7); HEMATOCRIT 30.5 % (36.0-48.0); HEMOGLOBIN 9.8 g/dL (12-16); IMMATURE GRANULOCYTES 0.1 % (0-5); MCH 26.1 pg (26.0-34.0); MCHC 32.1 g/dL (31.0-37.0); MCV 81.3 fL (80.0-100.0); MEAN PLATELET VOLUME 10.7 fL (7.4-10.4); MONOCYTES 8.7 % (2-11); NEUTROPHILS 46.5 % (40-80); PLATELET COUNT 226 10x3/uL (130-400); RBC 3.75 10x6/uL (4.00-5.40); RDW 15.2 % (11.5-14.5); WBC 8.5 10x3/uL (4.8-10.8)
[2019-12-17 05:16] VITALS: BP 126/57
[2019-12-17 05:19] LABS: ALBUMIN 3.1 g/dL (3.4-5.0); ANION GAP 15.9 mmol/L (8-16); BILIRUBIN - TOTAL 0.25 mg/dL (0.2-1.3); CALCIUM 8.4 mg/dL (8.5-10.1); CARBON DIOXIDE 23.9 mmol/L (21.0-32.0); CREATININE - SERUM 8.9 mg/dL (0.6-1.3); MAGNESIUM - SERUM 2.2 mg/dL (1.8-2.4); PHOSPHOROUS 5.4 mg/dL (2.5-4.9); POTASSIUM - SERUM 3.8 mmol/L (3.5-5.1); PROTEIN - SERUM 7.8 g/dL (6.4-8.2)
--- NOTE | 2019-12-17 07:30 | NUR ---
PT SITTING UP ON SIDE OF BED. DENIES NEEDS OR PAIN AT THIS TIME. RR EVEN AND UNLABORED ON ROOM AIR. BED IN LOWEST POSITION. CALL LIGHT WITHIN REACH. WILL CONTINUE TO MONITOR.
[2019-12-17 08:00] VITALS: BP 149/68
[2019-12-17 11:34] VITALS: BP 141/50
[2019-12-17 15:51] VITALS: BP 175/73
--- NOTE | 2019-12-17 18:09 | NUR ---
I have reviewed this patient and I concur with the Shift Assessment completed by the Licensed Practical Nurse today this shift.
[2019-12-17 19:00] VITALS: BP 161/77
--- NOTE | 2019-12-17 20:02 | NUR ---
RECEIVED SITTING UP ON SIDE OF BED. SYSTOLIC 190. APRESOLINE GIVEN PER ORDERS. PT REPORTS NOT LIKING THE WAY THE CLONIDINE MAKES HER FEEL. ALERT AND ORIENTED X4. SON AT BEDSIDE. IV TO RIGHT RA SL. LEGALLY BLINE ABLE TO SEE SHADOWS ONLY PER PT. TELEMETRY IN PLACE. TOES AMPUTATED ON LEDT FOOT SEVERAL YEARS AGO PER PT. WILL HAVE B/P RECHECKED. EDUCATED ON EFFECTS OF APRESOLIN AND REQUESTED HER ON NOT STANDING FOR AT LEAST 20MIN. EDUCATED SON ALSO. DENIES ANY OTHER NEEDS AT THIS TIME.
--- NOTE | 2019-12-17 20:31 | NUR ---
B/P 161/77 AT THIS TIME.
--- NOTE | 2019-12-17 20:33 | NUR ---
NONCOMPLIANT WITH DIET. DRINKING A 20 OUNCE BOTTLE OF JUICE DRINK. EXPLAINED THAT SHE IS DIABETIC AND THAT WAS NOT PART OF HER DIET. ACKNOWLEDGED THAT SHE WAS NOT SUPPOSE TO HAVE IT. CONTINUED TO DRINK IT.
[2019-12-18] VITALS: BP 159/81
[2019-12-18 04:00] VITALS: BP 138/67
[2019-12-18 04:46] LABS: BASOPHILS 0.1 % (0-2); EOSINOPHILS 4.1 % (0-7); HEMATOCRIT 31.9 % (36.0-48.0); HEMOGLOBIN 10.5 g/dL (12-16); IMMATURE GRANULOCYTES 0.1 % (0-5); LYMPHOCYTES 40.1 % (15-50); MCH 26.5 pg (26.0-34.0); MCHC 32.9 g/dL (31.0-37.0); MCV 80.6 fL (80.0-100.0); MEAN PLATELET VOLUME 10.3 fL (7.4-10.4); MONOCYTES 7.3 % (2-11); NEUTROPHILS 48.3 % (40-80); PLATELET COUNT 261 10x3/uL (130-400); RBC 3.96 10x6/uL (4.00-5.40); RDW 15.3 % (11.5-14.5); WBC 9.5 10x3/uL (4.8-10.8)
[2019-12-18 05:14] LABS: ALBUMIN 2.9 g/dL (3.4-5.0); BILIRUBIN - TOTAL 0.31 mg/dL (0.2-1.3); CALCIUM 8.6 mg/dL (8.5-10.1); MAGNESIUM - SERUM 2.2 mg/dL (1.8-2.4); PROTEIN - SERUM 7.5 g/dL (6.4-8.2)
[2019-12-18 05:16] LABS: PHOSPHOROUS 6.8 mg/dL (2.5-4.9)
--- NOTE | 2019-12-18 07:34 | NUR ---
PT LAYING SUPINE, EYES CLOSED. NO DISTRESS NOTED. DENIES NEEDS OR PAIN AT THIS TIME. RR EVEN AND UNLABORED. BED IN LOWEST POSITION. CALL LIGHT WITHIN REACH.WILL CONTINUE TO MONITOR.
[2019-12-18 08:03] VITALS: BP 129/67
[2019-12-18 12:22] VITALS: BP 165/85
[2019-12-18 15:55] VITALS: BP 149/67
--- NOTE | 2019-12-18 16:28 | NUR ---
SITTING UP SOB WITH CALL LIGHT IN REACH. AT BS. JAN NEEDS AT THIS TIME. WILL MONITOR.
[2019-12-18 20:30] VITALS: BP 173/78
[2019-12-19 00:30] VITALS: BP 190/86
[2019-12-19 04:30] VITALS: BP 144/77
[2019-12-19 06:12] LABS: ANION GAP 19.5 mmol/L (8-16); CALCIUM 8.5 mg/dL (8.5-10.1); CREATININE - SERUM 11.2 mg/dL (0.6-1.3); MAGNESIUM - SERUM 2.3 mg/dL (1.8-2.4); POTASSIUM - SERUM 4.5 mmol/L (3.5-5.1)
[2019-12-19 08:38] VITALS: BP 138/74
[2019-12-19 11:48] VITALS: BP 190/91
[2019-12-19 17:20] VITALS: BP 113/65
--- NOTE | 2019-12-19 19:10 | NUR ---
EVENING ROUNDS COMPLETE. PT IN DIALYSIS AT THIS TIME.
[2019-12-19 20:00] VITALS: BP 138/77
--- NOTE | 2019-12-19 20:00 | NUR ---
PT BACK FROM DIALYSIS AT THIS TIME. VSS. NO C/O PAIN. PT DENIES ANY NEEDS. FAMILY AT BEDSIDE. CL IN REACH, BED IN LOWEST POSITION.
[2019-12-20] VITALS: BP 137/73
[2019-12-20 04:00] VITALS: BP 138/76
--- NOTE | 2019-12-20 07:32 | NUR ---
REPORT RECIEVED. PT RESTING QUIETLY WITH EYES CLOSED, RISE AND FALL OF CHEST NOTED. RR EVEN AND UNLABORED ON RA. SHE IS A RESERVE L ARM FOR DIALYSIS ON ,W,. BED LOCKED AND IN LOWEST POSITION, CALL LIGHT WITHIN REACH. WILL CTM
[2019-12-20 09:08] VITALS: BP 129/72
--- NOTE | 2019-12-20 12:59 | CN ---
PATIENT NAME:JUSTA COLIN MEDICAL RECORD: [id number] : [birth year] LOCATION:. D.2104 ADMIT DATE: 12/17/19 ACCOUNT: [id number] CONSULTING PHYSICIAN: LISA SANTOYO MD REFERRING PHYSICIAN: EDGAR OLIVIA MD DATE OF CONSULTATION: 12/19/2019 PSYCHIATRIC CONSULTATION IDENTIFYING DATA: The patient is 49 years old and she is admitted to the hospital on a voluntary basis secondary to kidney failure. CHIEF COMPLAINT: Confusion. HISTORY OF PRESENT ILLNESS: The patient has a very long and unfortunately complex medical history. She is on hemodialysis 3 times a week secondary to renal failure. She has had a stroke. 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 She has longstanding diabetes, hypertension, and hyperparathyroidism. She currently has a hemoglobin of 11 and hematocrit of 32 with a BUN of 86 and a creatinine of 11.2. Apparently, the patient was fluid overloaded and had not been dialyzed for 2 weeks. She says she just moved here from [place], but that she did not make arrangements for her ongoing continuation of her medical care. She denies being significantly depressed. She denies confusion. MENTAL STATUS EXAMINATION: The patient is awake, alert and oriented to person, place and somewhat to time and situation. She does understand the situation pretty clearly, but not in details. She also is oriented to time with the exception of the fact that she misses the day of the month by 2 days, which is not really significant. Her mood is euthymic. Her affect is appropriate. Thought processes are goal directed. Memory, concentration, and abstraction abilities are mildly impaired and she denies any active intent to harm herself or others as well as any overt psychotic symptoms. ASSESSMENT: 1. Adjustment disorder with mixed emotional features. 2. Mild cognitive impairment. PLAN: The patient clearly has some impairment, probably secondary to small vascular disease related to diabetes and hypertension, as well as the fact that she has had a stroke. I see no evidence of a mood or thinking disorder, and no evidence of acute dangerousness. She has a son who is with her, who is going to take care of her and assist her with her needs. Her long-term prognosis is fairly guarded. TRANSINT:[id number] Voice Confirmation ID: [id number] DOCUMENT ID: [id number] CONSULT REPORT [id number] JUSTA COLIN PETER MD at 1259 CC: [id number] DICTATION DATE: 12/19/19 1606 APPRENTICE TECHNICIAN: 12/19/19 1701 ADM IN [place] [id number] [id number]
[2019-12-20 17:26] LABS: BASOPHILS 0.2 % (0-2); EOSINOPHILS 1.9 % (0-7); HEMATOCRIT 34.9 % (36.0-48.0); HEMOGLOBIN 11.5 g/dL (12-16); IMMATURE GRANULOCYTES 0.3 % (0-5); LYMPHOCYTES 38.1 % (15-50); MCH 26.6 pg (26.0-34.0); MCV 80.6 fL (80.0-100.0); MONOCYTES 5.5 % (2-11); PLATELET COUNT 277 10x3/uL (130-400); RBC 4.33 10x6/uL (4.00-5.40)
[2019-12-20 17:33] VITALS: BP 132/78
[2019-12-20 17:54] LABS: ANION GAP 19.1 mmol/L (8-16); CALCIUM 8.6 mg/dL (8.5-10.1); CARBON DIOXIDE 23.6 mmol/L (21.0-32.0); CREATININE - SERUM 9.7 mg/dL (0.6-1.3); POTASSIUM - SERUM 4.7 mmol/L (3.5-5.1)
--- NOTE | 2019-12-20 18:56 | NUR ---
I CONCUR WITH THE CLINICAL OPERATIONS SPECIALIST ASSESSMENT OF THIS PATIENT.
--- NOTE | 2019-12-20 19:26 | NUR ---
EVENING ROUNDS COMPLETE. PT SITTING UP ON SIDE OF BED. FAMILY AT BEDSIDE. NO SIGNS OF DISTRESS. PT DENIES ANY PAIN OR NEEDS AT THIS TIME. CL IN REACH, BED IN LOWEST POSITION.
[2019-12-20 20:00] VITALS: BP 132/70
[2019-12-21] VITALS: BP 137/92
[2019-12-21 04:00] VITALS: BP 128/74
[2019-12-21 07:11] LABS: CALCIUM 8.8 mg/dL (8.5-10.1); CARBON DIOXIDE 20.6 mmol/L (21.0-32.0); CREATININE - SERUM 10.6 mg/dL (0.6-1.3)
[2019-12-21 07:13] LABS: POTASSIUM - SERUM 5.6 mmol/L (3.5-5.1)
[2019-12-21 07:58] LABS: HEMATOCRIT 33.8 % (36.0-48.0); HEMOGLOBIN 11.1 g/dL (12-16); LYMPHOCYTES 44.5 % (15-50); MCH 26.5 pg (26.0-34.0); MCHC 32.8 g/dL (31.0-37.0); MCV 80.7 fL (80.0-100.0); MEAN PLATELET VOLUME 11.5 fL (7.4-10.4); NEUTROPHILS 45.2 % (40-80); RBC 4.19 10x6/uL (4.00-5.40); RDW 14.7 % (11.5-14.5); WBC 10.3 10x3/uL (4.8-10.8)
[2019-12-21 08:18] LABS: PLATELET COUNT 336 10x3/uL (130-400)
[2019-12-21 09:24] VITALS: BP 138/79
[2019-12-21 09:31] VITALS: BP 138/79
--- NOTE | 2019-12-21 13:47 | NUR ---
Nutrition Follow-up: Pt reports improved appetite. Ate ~75% of breakfast this AM. Does not like Nepro. Slight nausea. Awaiting HD chair placement. Diet: Renal ADA Wt: 224.8# (12/17) Last BM: 12/21 Labs noted: K+ 5.6, Glu 99 Meds noted: Humalog, Renagel, Pepcid -Continue current diet as tolerated. -Need new wt; noted daily wts ordered. -RD following.
--- NOTE | 2019-12-21 16:15 | NUR ---
UP SOB WITH CALL LIGHT IN REACH. AT BS. JAN NEEDS.
[2019-12-21 20:00] VITALS: BP 106/68
[2019-12-22] VITALS (7 sets, daily range): BP systolic 101–113; BP diastolic 58–68
[2019-12-22 05:36] LABS: BASOPHILS 0.2 % (0-2); EOSINOPHILS 1.2 % (0-7); HEMOGLOBIN 11.8 g/dL (12-16); IMMATURE GRANULOCYTES 0.1 % (0-5); LYMPHOCYTES 39.3 % (15-50); MCH 27.1 pg (26.0-34.0); MCHC 33.7 g/dL (31.0-37.0); MCV 80.3 fL (80.0-100.0); MEAN PLATELET VOLUME 10.3 fL (7.4-10.4); NEUTROPHILS 54.2 % (40-80); RBC 4.36 10x6/uL (4.00-5.40); RDW 14.9 % (11.5-14.5); WBC 10.2 10x3/uL (4.8-10.8)
[2019-12-22 05:54] LABS: ANION GAP 19.3 mmol/L (8-16); CALCIUM 8.8 mg/dL (8.5-10.1); CARBON DIOXIDE 24.5 mmol/L (21.0-32.0); CREATININE - SERUM 8.6 mg/dL (0.6-1.3); POTASSIUM - SERUM 4.8 mmol/L (3.5-5.1)
[2019-12-22 06:21] LABS: PLATELET COUNT 266 10x3/uL (130-400)
--- NOTE | 2019-12-22 19:45 | NUR ---
REPORT RECIEVED AND ROUNDING COMPLETE. PATIENT LAYING IN BED EYES CLOSED AND BLANKET OVER HER HEAD. PATIENT'S SON IS AT BEDSIDE. PATIENT IS BLIND. PATIENT HAS ARIGHT FOREARM PIV THAT IS PATENT AND FLUSHES EASILY, NO S/SX OF INFILTRATION. PATIENT SHOWS NO S/SX OF DISTRESS AT THIS TIME. PATIENT WAS EASILY AROUSED, PATIENT IS ORIENTED X4. PATIENT STATES SHE IS JUST TIRED. CALL LIGHT WITHIN REACHA ND BED IN LOWEST LOCKED POSITION.
[2019-12-23 01:18] VITALS: BP 79/53
--- NOTE | 2019-12-23 02:14 | NUR ---
REMOVED PIV FROM LEFT ARM, CATH INTACT. PIV PLACED IN RIGHT HAND X1 STICK PATIENT TOLERATED WELL FLUIDS RESTARTED.
--- NOTE | 2019-12-23 03:45 | NUR ---
I have reviewed this patient and I concur with the Shift Assessment completed by the Licensed Practical Nurse today this shift.
[2019-12-23 04:23] LABS: BASOPHILS 0.2 % (0-2); EOSINOPHILS 1.8 % (0-7); HEMATOCRIT 32.6 % (36.0-48.0); HEMOGLOBIN 10.6 g/dL (12-16); IMMATURE GRANULOCYTES 0.3 % (0-5); LYMPHOCYTES 46.7 % (15-50); MCH 26.2 pg (26.0-34.0); MCHC 32.5 g/dL (31.0-37.0); MCV 80.7 fL (80.0-100.0); MEAN PLATELET VOLUME 10.2 fL (7.4-10.4); MONOCYTES 5.8 % (2-11); NEUTROPHILS 45.2 % (40-80); PLATELET COUNT 245 10x3/uL (130-400); RBC 4.04 10x6/uL (4.00-5.40); RDW 14.7 % (11.5-14.5); WBC 9.5 10x3/uL (4.8-10.8)
[2019-12-23 04:42] VITALS: BP 111/55
[2019-12-23 05:36] LABS: ANION GAP 16.5 mmol/L (8-16); CALCIUM 8.3 mg/dL (8.5-10.1); CARBON DIOXIDE 24.8 mmol/L (21.0-32.0); POTASSIUM - SERUM 4.3 mmol/L (3.5-5.1)
[2019-12-23 05:37] LABS: CREATININE - SERUM 11.1 mg/dL (0.6-1.3)
--- NOTE | 2019-12-23 07:30 | NUR ---
AM ROUNDS COMPLETED. INTRODUCED MYSELF TO PT PRIMARY RN FOR TODAYS SHIFT. PT IS RESTING WITH BLANKET OVER HER HEAD. I TRIED ASSESSING HER AND SHE REQUESTED I COME BACK AND STATES "IM JUST SLEEPY AND WANT TO REST" NO IMMEDIATE NEEDS AT THIS TIME. WILL ALLOW HER TO REST AND CPOC. FAMILY AT BEDSIDE. BED IN LOWEST, SIDE RAILS X2, WILL CTM.
[2019-12-23 08:00] VITALS: BP 100/53
--- NOTE | 2019-12-23 11:29 | NUR ---
FSBS 150 NO ACTION REQUIRED PER SS. PT IS FINALLY WAKING UP SOME AND STATES SHE WILL STAY AWAKE AND EAT LUNCH AND WAITING FOR DIALYSIS. PROVIDED PT WITH SOME FRESH ICE. SHE DENIES ANY CURRENT PAIN OR NEEDS AT THIS TIME. CL IN REACH, BED IN LOWEST, SIDE RAILS X2. WILL CPOC.
[2019-12-23 12:00] VITALS: BP 101/54
--- NOTE | 2019-12-23 12:07 | NUR ---
DIALYSIS CALLED FOR PT. BROUGHT PT DOWN VIA BED AND WITH HER MEAL TRAY. PT VOICED THANKS AND DENIES ANY CURRENT PAIN OR NEEDS AT THIS TIME. WILL CTM.
--- NOTE | 2019-12-23 16:08 | NUR ---
PT BACK FROM DIALYSIS SITTING UP IN BED VISITING WITH FAMILY. PT STATES DIALYSIS WENT WELL AND DENIES ANY CURRENT PAIN OR NEEDS. VSS. NO IMMEDIATE NEEDS. WILL CPOC.
--- NOTE | 2019-12-23 18:24 | MORECARE ---
CASE MANAGEMENT DISCHARGE SUMMARY PATIENT: JUSTA COLIN UNIT: [id number] ADM DATE: 12/17/19 AGE: 49 : [birth year] SEX: F ROOM/BED: D.2104 AUTHOR: EFRAÍN,DOC PHYSICIAN: REFERRING PHYSICIAN: EDGAR OLIVIA MD DATE OF SERVICE: 12/23/19 Discharge Plan Patient Name: JUSTA COLIN Facility: [facility]:[place] : 1970 Planned Disposition: Home Anticipated Discharge Date: Discharge Date: Expected LOS: Initial Reviewer: [email or web address] Initial Review Date: 12/14/2019 Generated: 12/23/19 7:23 pm Comments DCP- Discharge Planning Updated by [email or web address]: Randy Beverly on 12/23/19 5:[address] Patient Name: JUSTA COLIN Encounter No: [id number] : 1970 Primary Insurance: MEDICAID [place] PENDING Anticipated DC Date: Planned Disposition: Home DCP follow-up note: CM SPOKE TO BIANCA OF [facility], THE DIALYSIS UNITS REQUIRE PROOF THAT PT HAS FILED FOR MEDICAID FOR OUTPATIENT PLACEMENT. CM SPOKE TO [employer] WHO INFORMED CM THAT PT IS PENDING MEDICAID APPROVAL THROUGH [employer] FOR DECEMBER 31, MEDICAID #[id number]. THIS MEDICAID WILL ONLY BE ACTIVE FOR SHORT TIME PT HAS OUT OF STATE MEDICAID THROUGH [employer] AND PT WILL NEED TO APPLY WITH [employer] FOR MEDICAID IN [place]. CM NOTIFIED BIANCA. CM NOTIFIED PT IN ROOM WHO REPORTS UNDERSTANDING. CM WAITIN OUTPATIENT DIALYSIS CLINIC ARRANGEMENT. Pressroom Supervisor: Randy Beverly DCP- Discharge Planning Updated by [email or web address]: Randy Beverly on 12/15/19 1:[address] Patient Name: JUSTA COLIN Admission Status: ER Accout number: [id number] Admission Date: 12-13-2019 : 1970 Admission Diagnosis: Attending: EDGAR OLIVIA Current LOS: 2 Anticipated DC Date: Planned Disposition: Home Primary Insurance: MEDICAID [place] PENDING Discharge Planning Comments: CM MET WITH PT IN ROOM TO DISCUSS ORDER FOR PLACEMENT, DISCHARGE PLANNING AND NEEDS. PT DECLINES ANY PLACEMENT, REPORTS HAVING SAFE PLACE TO STAY; REPORTS LIVING AT HOME DEPENDENTLY WITH HER SISTER IN [place]. PT'S SISTER AND DAUGHTER HELP PT WITH MEDICATION MANAGEMENT. CM VERFIED HOME ADDRESS OF [address] IN [place]. PT HAS A BROKEN WALKER WITH NO MEDICAL EQUIPMENT PROVIDER PREFERENCE AND NO OUTSIDE SERVICES ASSISTING IN THE HOME. PT REPORTS MOVING FROM [place] ONE WEEK AGO ON EMERGENCY BASIS. PT DID NOT HAVE TIME TO ARRANGE OUTPATIENT DIALYSIS, STATES SHE ASKED [facility] IN [facility]. TO SEND RECORDS TO [facility] IN [place]. PT HAS NOT CALLED [employer] TO CHANGE HER ADDRESS OF YET BUT PLANS TO DO SO TOMORROW. PT STATES SHE HAD MEDICAID IN [place] AND MET WITH A ANDREAS FROM [facility] WHO IS GOING TO HELP AND DIRECTED HER TO CALL [employer]. CM PROVIDED PT WITH THE NATIONAL [employer] NUMBER WELL THE [facility] [employer] PHONE NUMBER. CM DISCUSSED AVAILABILITY OF HOME HEALTH, REHAB SERVICES AND MEDICAL EQUIPMENT. PT DENIES DISCHARGE NEEDS, REPORTS HER FAMILY WILL PICK HER UP FOR DISCHARGE HOME. CM REVIEWED CHART AND SPOKE TO JANET MACKEY WHO PROVIDED ORDER FOR OUTPATIENT DIALYSIS UNIT PLACEMENT. CM NOTIFIED BIANCA OF [facility], , AND FAXED FACE SHEET TO BIANCA AT [phone]. PT DECLINES PLACEMENT, REPORTS PLAN TO DISCHARGE HOME WITH ADULT DAUGHTER AND SISTER. CM WAITING OUTPATIENT DIALYSIS CLINIC ARRANGEMENT. Pressroom Supervisor: Randy Beverly DCP- Discharge Planning Updated by [email or web address]: Randy Beverly on 12/15/19 8:[address] Patient Name: JUSTA COLIN Encounter No: [id number] : 1970 Primary Insurance: UNINSURED DISCOUNT PLAN Anticipated DC Date: Planned Disposition: External Planned Provider: : DCP follow-up note: CM ATTEMPTED TO MEET WITH PT FOR INITIAL ASSESSMENT OF DISCHARGE NEEDS. PT WAS IN THE BATHROOM AT APPROXIMATELY 0930 HOURS. CM TO ATTEMPT ASSESSMENT OF PT AT A LATER TIME. Randy Beverly, CASE MANAGEMENT DCP- Discharge Planning Updated by [id number]: Randy Beverly on 12/15/19 8:[address] Patient Name: JUSTA COLIN Encounter No: [id number] : 1970 Primary Insurance: UNINSURED DISCOUNT PLAN Anticipated DC Date: Planned Disposition: External Planned Provider: : LATE ENTRY FROM 12-14-19, 1452 HOURS: DCP follow-up note: ON 12-14-19, CM ATTEMPTED TO MEET WITH PT FOR INITIAL ASSESSMENT OF DISCHARGE NEEDS. PT WAS NOT IN ROOM AT APPROXIMATELY 1452 HOURS. CM TO ATTEMPT ASSESSMENT OF PT AT A LATER TIME. RANDY BEVERLY, CASE MANAGEMENT DCP- Discharge Planning Updated by [email or web address]: Randy Beverly on 12/14/19 12:[address] Patient Name: JUSTA COLIN Admission Status: ER Accout number: [id number] Admission Date: 12-13-2019 : 1970 Admission Diagnosis: Attending: EDGAR OLIVIA Current LOS: 1 Anticipated DC Date: Planned Disposition: Primary Insurance: UNINSURED DISCOUNT PLAN Discharge Planning Comments: CM RECEIVED ORDER FOR PLACEMENT, ATTEMPTED TO MEET WITH PT FOR INITIAL ASSESSMENT OF DISCHARGE NEEDS. NOTIFED PT IS IN DIALYSIS PT WAS NOT IN ROOM AT APPROXIMATELY 1300 HOURS. CM TO ATTEMPT TO ADDRESS ORDER AND COMPLETE ASSESSMENT OF PT AT A LATER TIME. Pressroom Supervisor: Randy Beverly DCPIA - Discharge Planning Initial Assessment Updated by [email or web address]: Randy Beverly on 12/15/19 2:24 pm * Is the patient Alert and Oriented? Yes * How many steps to enter\exit or inside your home? * PCP NONE * Pharmacy [facility] IN [place] * Preadmission Environment Home with Family * ADLs Partial Dependent * Partial ADLs (Assistance needed) Medication Management * Equipment Walker * Other Equipment REPORTS WALKER IS BROKEN NO MEDICAL EQUIPMENT PROVIDER PREFERENCE * List name and contact numbers for known caregivers / representatives who currently or will assist patient after discharge: ALFREDO CAT, DTR, FRANCISCO JAVIER COLIN, SISTER, * Verbal permission to speak to the caregivers and representatives has been obtained from the patient. Yes * Community resources currently utilized Other * Please name any agencies selected above. [facility] IN [place], [place]. [facility], MWF * Additional services required to return to the preadmission environment? Yes * Can the patient safely return to the preadmission environment? Yes * Has this patient been hospitalized within the prior 30 days at any hospital? No Last DP export: 12/15/19 1:40 p Patient Name: JUSTA COLIN Page [id number] at 1824 All edits/amendments must be made on the electronic document DICTATION DATE: 12/23/191822 ELECTRONIC EQUIPMENT INSTALLER: AMRIT 12/23/191822 RPT#: [id number] DC DATE: STATUS: ADM IN [facility] [address] [place] [address] END OF REPORT
[2019-12-23 20:30] VITALS: BP 109/61
[2019-12-24 00:30] VITALS: BP 98/57
[2019-12-24 04:30] VITALS: BP 96/57
[2019-12-24 04:57] LABS: BASOPHILS 0.3 % (0-2); EOSINOPHILS 1.9 % (0-7); HEMATOCRIT 34.2 % (36.0-48.0); HEMOGLOBIN 11.1 g/dL (12-16); IMMATURE GRANULOCYTES 0.2 % (0-5); LYMPHOCYTES 45.4 % (15-50); MCH 26.4 pg (26.0-34.0); MCHC 32.5 g/dL (31.0-37.0); MCV 81.2 fL (80.0-100.0); MEAN PLATELET VOLUME 10.3 fL (7.4-10.4); MONOCYTES 6.1 % (2-11); NEUTROPHILS 46.1 % (40-80); PLATELET COUNT 249 10x3/uL (130-400); RBC 4.21 10x6/uL (4.00-5.40); RDW 14.8 % (11.5-14.5)
[2019-12-24 05:25] LABS: ANION GAP 14.4 mmol/L (8-16); CALCIUM 8.7 mg/dL (8.5-10.1); CARBON DIOXIDE 26.1 mmol/L (21.0-32.0); POTASSIUM - SERUM 4.5 mmol/L (3.5-5.1)
[2019-12-24 08:00] VITALS: BP 86/56
--- NOTE | 2019-12-24 09:42 | NUR ---
PT RESTING. WILL NOT WAKE UP WITHOUT LOTS OF SHOUTS AND SHAKES. CL IN REACH, SRX2. SON AT BEDSIDE.
--- NOTE | 2019-12-24 11:24 | NUR ---
I have reviewed this patient and I concur with the Shift Assessment completed by the Licensed Practical Nurse today this shift.
[2019-12-24 16:00] VITALS: BP 113/59
--- NOTE | 2019-12-24 19:30 | NUR ---
REPORT RECEIVED. BEDSIDE SHIFT REPORT COMPLETE. PT SITTING ON THE SIDE OF THE BED REQUESTING ICE. RR EVEN AND UNLABORED. NO S/SX OF DISTRESS OBSERVED AT THIS TIME. NO NEEDS EXPRESSED. CALL LIGHT IN REACH. WILL CTM.
[2019-12-24 21:30] VITALS: BP 115/71
[2019-12-25 00:30] VITALS: BP 127/70
[2019-12-25 04:30] VITALS: BP 87/46
[2019-12-25 04:59] LABS: BASOPHILS 0.3 % (0-2); EOSINOPHILS 2.2 % (0-7); HEMATOCRIT 31.6 % (36.0-48.0); HEMOGLOBIN 10.4 g/dL (12-16); IMMATURE GRANULOCYTES 0.2 % (0-5); MCH 26.5 pg (26.0-34.0); MCHC 32.9 g/dL (31.0-37.0); MCV 80.4 fL (80.0-100.0); MEAN PLATELET VOLUME 10.9 fL (7.4-10.4); MONOCYTES 5.1 % (2-11); NEUTROPHILS 39.2 % (40-80); PLATELET COUNT 276 10x3/uL (130-400); RBC 3.93 10x6/uL (4.00-5.40); RDW 14.7 % (11.5-14.5); WBC 10.2 10x3/uL (4.8-10.8)
[2019-12-25 05:34] LABS: ANION GAP 14.8 mmol/L (8-16); CALCIUM 8.4 mg/dL (8.5-10.1); CARBON DIOXIDE 26.3 mmol/L (21.0-32.0); POTASSIUM - SERUM 4.1 mmol/L (3.5-5.1)
[2019-12-25 05:35] LABS: CREATININE - SERUM 11.3 mg/dL (0.6-1.3)
[2019-12-25 08:00] VITALS: BP 99/56
--- NOTE | 2019-12-25 09:31 | NUR ---
PT RESTING PEACEFULLY, TIRED TO WAKE HER AND SON UP MULTIPLE TIMES. TOLD ME THEY DON'T WANT TO BE DISTRUBED TILL CLOSER TO NOON. OBLIGED. CL IN REACH,S RX2.
[2019-12-25 16:00] VITALS: BP 129/73
--- NOTE | 2019-12-25 19:10 | NUR ---
BEDSIDE REPORT RECEIVED FROM DAY SHIFT, PT CARE ASSUMED. INTRODUCED SELF AND WROTE NAME ON BOARD. PT SITTING ON SIDE OF BED, VISITING WITH SON AT BEDSIDE, AAOX4. REQUESTING NÉSTOR MALDONADO, PROVIDED. DENIES ANY OTHER NEEDS AT THIS TIME. BED IN LOWEST POSITION, SR X2, CALL LIGHT WITHIN REACH. WILL CONTINUE TO MONITOR.
[2019-12-25 20:30] VITALS: BP 142/72
[2019-12-26 00:30] VITALS: BP 144/78
[2019-12-26 04:30] VITALS: BP 133/67
[2019-12-26 06:02] LABS: BASOPHILS 0.2 % (0-2); EOSINOPHILS 2.6 % (0-7); HEMATOCRIT 30.1 % (36.0-48.0); IMMATURE GRANULOCYTES 0.2 % (0-5); LYMPHOCYTES 48.3 % (15-50); MCH 26.4 pg (26.0-34.0); MCHC 33.2 g/dL (31.0-37.0); MCV 79.4 fL (80.0-100.0); MEAN PLATELET VOLUME 10.8 fL (7.4-10.4); MONOCYTES 5.9 % (2-11); NEUTROPHILS 42.8 % (40-80); PLATELET COUNT 275 10x3/uL (130-400); RBC 3.79 10x6/uL (4.00-5.40); RDW 14.7 % (11.5-14.5); WBC 9.2 10x3/uL (4.8-10.8)
[2019-12-26 06:34] LABS: ANION GAP 16.7 mmol/L (8-16); CALCIUM 8.3 mg/dL (8.5-10.1); CARBON DIOXIDE 24.5 mmol/L (21.0-32.0); CREATININE - SERUM 12.5 mg/dL (0.6-1.3); POTASSIUM - SERUM 4.2 mmol/L (3.5-5.1)
--- NOTE | 2019-12-26 07:36 | NUR ---
PT RESTING SOUNDLY, WILL NOT WAKE UP. NEITHER WILL SON AT BEDSIDE. ATTEMPTED LOUDLY. WILL TRY AGAIN LATER. CL IN REACH, SRX2, NO SIGNS OR SYMPTOMS OF ACUTE DISTRESS NOTED AT THIS TIME.
[2019-12-26 10:26] VITALS: BP 150/77
--- NOTE | 2019-12-26 10:30 | NUR ---
PT AWAKE AND ORIETNED, REQUESTS ICE. NO OTHER OCMPLAINTS OR CONCERNS AT THIST RADHA. CL IN REACH SRX2. SON AT BEDSIDE.
--- NOTE | 2019-12-26 10:31 | NUR ---
UI/V OUT TIP INTACT. PT REFUSES ANOTHER. THAT ONE WAS PULLED OUT ACCIDENTALY BY PT.
--- NOTE | 2019-12-26 11:42 | NUR ---
I have reviewed this patient and I concur with the Shift Assessment completed by the Licensed Practical Nurse today this shift.
--- NOTE | 2019-12-26 12:27 | NUR ---
PT IN DIALYSIS. MULTIPLE FAMILY MEMBERS IN ROOM THINKING PT WILL D/C TODAY, WILL INVESTIGATE.
--- NOTE | 2019-12-26 15:51 | NUR ---
PT BACK FROM DIALYSIS. CL IN REACH, SRX2, NO COMPLAINTS OR CONCERNS.
--- NOTE | 2019-12-26 17:35 | NUR ---
PT AWAKE AND ORIENTED, HAPPY TO BE BACK POST DIALYSIS. ANXIOUS TO GET HOME SOON. NO COMPLAINTS OR CONCERNS AT THIS TIME. CL IN REACH,SRX2. FAMILY AT BEDSIDE.
[2019-12-26 20:36] VITALS: BP 119/61
--- NOTE | 2019-12-26 21:37 | NUR ---
EVENING ROUNDS COMPLETED. VSS, NO S/S OF RT DISTRESS. FAMILY AT BEDSIDE. FSBS 381. TREATED PER SLIDING SCALE. PT DENIES ANY FURTHER NEEDS AT THIS TIME. FALLRISK IN PLACE. WILL CTM.
[2019-12-27 00:28] VITALS: BP 122/70
[2019-12-27 05:51] LABS: BASOPHILS 0.2 % (0-2); EOSINOPHILS 2.3 % (0-7); HEMATOCRIT 30.8 % (36.0-48.0); HEMOGLOBIN 10.1 g/dL (12-16); IMMATURE GRANULOCYTES 0.2 % (0-5); LYMPHOCYTES 41.4 % (15-50); MCH 26.2 pg (26.0-34.0); MCHC 32.8 g/dL (31.0-37.0); MCV 79.8 fL (80.0-100.0); MEAN PLATELET VOLUME 10.4 fL (7.4-10.4); MONOCYTES 6.7 % (2-11); NEUTROPHILS 49.2 % (40-80); PLATELET COUNT 262 10x3/uL (130-400); RBC 3.86 10x6/uL (4.00-5.40); RDW 14.7 % (11.5-14.5); WBC 10.4 10x3/uL (4.8-10.8)
[2019-12-27 05:56] LABS: CALCIUM 8.4 mg/dL (8.5-10.1); CREATININE - SERUM 9.6 mg/dL (0.6-1.3)
[2019-12-27 06:30] VITALS: BP 111/61
[2019-12-27 08:34] VITALS: BP 121/61
[2019-12-27 11:50] VITALS: BP 117/58
--- NOTE | 2019-12-27 13:22 | NUR ---
Nutrition Follow-up: Overall eating well. Reports mild nausea without vomiting. HD yesterday. Awaiting HD chair placement. Diet: Renal ADA PO intake: 100% x 4 meals Wt: 196# (12/27); 224.8# (12/17) Last BM: 12/27 Labs noted: Na 134, K+ 4.0, Glu 182, Ca 8.4 Meds noted: Protonix, Humalog, Renagel, Pepcid -Continue current diet as tolerated. -Monitor wt; noted daily wts ordered. -RD following.
[2019-12-27 16:04] VITALS: BP 158/84
--- NOTE | 2019-12-27 19:30 | NUR ---
AWAKE AND ALERT DENIES NEEDS AT THIS TIME BED IS LOW AND LOCKED CALL LIGHT IS WITH PT AND FAMILY ARE PRESENT
[2019-12-27 21:03] VITALS: BP 134/80
[2019-12-28 01:51] VITALS: BP 152/77
--- NOTE | 2019-12-28 02:10 | NUR ---
I have reviewed this patient and I concur with the Shift Assessment completed by the Licensed Practical Nurse today this shift.
[2019-12-28 05:20] LABS: BASOPHILS 0.2 % (0-2); EOSINOPHILS 2.5 % (0-7); HEMATOCRIT 31.7 % (36.0-48.0); HEMOGLOBIN 10.3 g/dL (12-16); IMMATURE GRANULOCYTES 0.1 % (0-5); LYMPHOCYTES 42.8 % (15-50); MCHC 32.5 g/dL (31.0-37.0); MCV 80.1 fL (80.0-100.0); MEAN PLATELET VOLUME 10.6 fL (7.4-10.4); MONOCYTES 5.4 % (2-11); PLATELET COUNT 278 10x3/uL (130-400); RBC 3.96 10x6/uL (4.00-5.40); RDW 14.6 % (11.5-14.5); WBC 9.1 10x3/uL (4.8-10.8)
[2019-12-28 05:38] LABS: CALCIUM 8.8 mg/dL (8.5-10.1); CARBON DIOXIDE 25.2 mmol/L (21.0-32.0); CREATININE - SERUM 10.9 mg/dL (0.6-1.3); POTASSIUM - SERUM 4.2 mmol/L (3.5-5.1)
[2019-12-28 06:34] VITALS: BP 151/82
--- NOTE | 2019-12-28 08:09 | NUR ---
RESTING IN BED, NO DISTRESS NOTED, NO IV ACCESS NOTED, BLIND, CONT TO MONITOR SUGARS
[2019-12-28 08:33] VITALS: BP 151/89
--- NOTE | 2019-12-28 10:39 | NUR ---
TAKEN TO DIALYSIS PER W/C, DREA WELL
[2019-12-28 15:39] VITALS: BP 106/63
--- NOTE | 2019-12-28 17:15 | NUR ---
REVIEWED PT DC PAPERS, VOICED NO CONCERNS, TAXI IN ROUTE
--- NOTE | 2019-12-28 17:45 | NUR ---
TAKEN TO TAXI PER WC
--- NOTE | 2019-12-29 08:30 | MORECARE ---
CASE MANAGEMENT DISCHARGE SUMMARY PATIENT: JUSTA COLIN UNIT: [id number] ADM DATE: 12/17/19 AGE: 49 : [birth year] SEX: F ROOM/BED: D.2104 AUTHOR: EFRAÍN,DOC PHYSICIAN: REFERRING PHYSICIAN: EDGAR OLIVIA MD DATE OF SERVICE: 12/29/19 Discharge Plan Patient Name: JUSTA COLIN Facility: [facility]:[place] : 1970 Planned Disposition: Home Anticipated Discharge Date: Discharge Date: 12/28/2019 Expected LOS: Initial Reviewer: [email or web address] Initial Review Date: 12/14/2019 Generated: 12/29/19 9:30 am DCP- Discharge Planning Updated by [email or web address]: Randy Beverly on 12/23/19 5:[address] Patient Name: JUSTA COLIN Encounter No: [id number] : 1970 Primary Insurance: MEDICAID [place] PENDING Anticipated DC Date: Planned Disposition: Home DCP follow-up note: CM SPOKE TO BIANCA OF [facility], THE DIALYSIS UNITS REQUIRE PROOF THAT PT HAS FILED FOR MEDICAID FOR OUTPATIENT PLACEMENT. CM SPOKE TO [employer] WHO INFORMED CM THAT PT IS PENDING MEDICAID APPROVAL THROUGH [employer] FOR DECEMBER 31, MEDICAID #[id number]. THIS MEDICAID WILL ONLY BE ACTIVE FOR SHORT TIME PT HAS OUT OF STATE MEDICAID THROUGH [employer] AND PT WILL NEED TO APPLY WITH SOCIAL [employer] FOR MEDICAID IN [place]. CM NOTIFIED BIANCA. CM NOTIFIED PT IN ROOM WHO REPORTS UNDERSTANDING. CM WAITIN OUTPATIENT DIALYSIS CLINIC ARRANGEMENT. Fluid Power Mechanic: Randy Beverly DCP- Discharge Planning Updated by [email or web address]: Randy Beverly on 12/15/19 1:[address] Patient Name: JUSTA COLIN Admission Status: ER Accout number: [id number] Admission Date: 12-13-2019 : 1970 Admission Diagnosis: Attending: EDGAR OLIVIA Current LOS: 2 Anticipated DC Date: Planned Disposition: Home Primary Insurance: MEDICAID [place] PENDING Discharge Planning Comments: CM MET WITH PT IN ROOM TO DISCUSS ORDER FOR PLACEMENT, DISCHARGE PLANNING AND NEEDS. PT DECLINES ANY PLACEMENT, REPORTS HAVING SAFE PLACE TO STAY; REPORTS LIVING AT HOME DEPENDENTLY WITH HER SISTER IN [place]. PT'S SISTER AND DAUGHTER HELP PT WITH MEDICATION MANAGEMENT. CM VERFIED HOME ADDRESS OF [address] IN [place]. PT HAS A BROKEN WALKER WITH NO MEDICAL EQUIPMENT PROVIDER PREFERENCE AND NO OUTSIDE SERVICES ASSISTING IN THE HOME. PT REPORTS MOVING FROM [place] ONE WEEK AGO ON EMERGENCY BASIS. PT DID NOT HAVE TIME TO ARRANGE OUTPATIENT DIALYSIS, STATES SHE ASKED [facility] IN [facility]. TO SEND RECORDS TO [facility] IN [place]. PT HAS NOT CALLED SOCIAL SECURITY DISABILITY TO CHANGE HER ADDRESS OF YET BUT PLANS TO DO SO TOMORROW. PT STATES SHE HAD MEDICAID IN [place] AND MET WITH A ANDREAS [facility] WHO IS GOING TO HELP AND DIRECTED HER TO CALL SOCIAL SECURITY. CM PROVIDED PT WITH THE NATIONAL SOCIAL SECURITY NUMBER WELL THE [facility] OF SOCIAL SECURITY PHONE NUMBER. CM DISCUSSED AVAILABILITY OF HOME HEALTH, REHAB SERVICES AND MEDICAL EQUIPMENT. PT DENIES DISCHARGE NEEDS, REPORTS HER FAMILY WILL PICK HER UP FOR DISCHARGE HOME. CM REVIEWED CHART AND SPOKE TO JANET MACKEY WHO PROVIDED ORDER FOR OUTPATIENT DIALYSIS UNIT PLACEMENT. CM NOTIFIED BIANCA [facility], , AND FAXED FACE SHEET TO BIANCA AT [phone]. PT DECLINES PLACEMENT, REPORTS PLAN TO DISCHARGE HOME WITH ADULT DAUGHTER AND SISTER. CM WAITING OUTPATIENT DIALYSIS CLINIC ARRANGEMENT. Fluid Power Mechanic: Randy Beverly DCP- Discharge Planning Updated by [email or web address]: Randy Beverly on 12/15/19 8:[address] Patient Name: JUSTA COLIN Encounter No: [id number] : 1970 Primary Insurance: UNINSURED DISCOUNT PLAN Anticipated DC Date: Planned Disposition: External Planned Provider: : DCP follow-up note: CM ATTEMPTED TO MEET WITH PT FOR INITIAL ASSESSMENT OF DISCHARGE NEEDS. PT WAS IN THE BATHROOM AT APPROXIMATELY 0930 HOURS. CM TO ATTEMPT ASSESSMENT OF PT AT A LATER TIME. Randy Beverly, CASE MANAGEMENT DCP- Discharge Planning Updated by [email or web address]: Randy Beverly on 12/15/19 8:[address] Patient Name: JUSTA COLIN Encounter No: [id number] : 1970 Primary Insurance: UNINSURED DISCOUNT PLAN Anticipated DC Date: Planned Disposition: External Planned Provider: : LATE ENTRY FROM 12-14-19, 1452 HOURS: DCP follow-up note: ON 12-14-19, CM ATTEMPTED TO MEET WITH PT FOR INITIAL ASSESSMENT OF DISCHARGE NEEDS. PT WAS NOT IN ROOM AT APPROXIMATELY 1452 HOURS. CM TO ATTEMPT ASSESSMENT OF PT AT A LATER TIME. RANDY BEVERLY, CASE MANAGEMENT DCP- Discharge Planning Updated by [id number]: Randy Beverly on 12/14/19 12:[address] Patient Name: JUSTA COLIN Admission Status: ER Accout number: [id number] Admission Date: 12-13-2019 : 1970 Admission Diagnosis: Attending: EDGAR OLIVIA Current LOS: 1 Anticipated DC Date: Planned Disposition: Primary Insurance: UNINSURED DISCOUNT PLAN Discharge Planning Comments: CM RECEIVED ORDER FOR PLACEMENT, ATTEMPTED TO MEET WITH PT FOR INITIAL ASSESSMENT OF DISCHARGE NEEDS. NOTIFED PT IS IN DIALYSIS PT WAS NOT IN ROOM AT APPROXIMATELY 1300 HOURS. CM TO ATTEMPT TO ADDRESS ORDER AND COMPLETE ASSESSMENT OF PT AT A LATER TIME. Fluid Power Mechanic: Randy Beverly DCPIA - Discharge Planning Initial Assessment Updated by [id number]: Randy Beverly on 12/15/19 2:24 pm * Is the patient Alert and Oriented? Yes * How many steps to enter\exit or inside your home? * PCP NONE * Pharmacy [facility] IN [place] * Preadmission Environment Home with Family * ADLs Partial Dependent * Partial ADLs (Assistance needed) Medication Management * Equipment Walker * Other Equipment REPORTS WALKER IS BROKEN NO MEDICAL EQUIPMENT PROVIDER PREFERENCE * List name and contact numbers for known caregivers / representatives who currently or will assist patient after discharge: ALFREDO CAT, DTR, FRANCISCO JAVIER COLIN, SISTER, * Verbal permission to speak to the caregivers and representatives has been obtained from the patient. Yes * Community resources currently utilized Other * Please name any agencies selected above. LAST OUTPATIENT DIALYSIS [facility] IN [place], [place]. [facility], MWF * Additional services required to return to the preadmission environment? Yes * Can the patient safely return to the preadmission environment? Yes * Has this patient been hospitalized within the prior 30 days at any hospital? No Last DP export: 12/23/19 5:24 p Patient Name: JUSTA COLIN Page 40450 at 0830 All edits/amendments must be made on the electronic document DICTATION DATE: 12/29/19829 NURSING UNIT COORDINATOR: AMRIT 12/29/19829 RPT#: [id number] DC DATE:12/28/19 STATUS: DIS IN [facility] [address] [place] [address] END OF REPORT
--- NOTE | 2019-12-29 17:01 | MORECARE ---
CASE MANAGEMENT DISCHARGE SUMMARY PATIENT: JUSTA COLIN UNIT: [id number] ADM DATE: 12/17/19 AGE: 49 : [birth year] SEX: F ROOM/BED: D.2104 AUTHOR: EFRAÍN,DOC PHYSICIAN: REFERRING PHYSICIAN: EDGAR HOPE MD DATE OF SERVICE: 12/29/19 Discharge Plan Patient Name: JUSTA COLIN Facility: [facility]:[place] : 1970 Planned Disposition: Home Anticipated Discharge Date: Discharge Date: 12/28/2019 Expected LOS: Initial Reviewer: [email or web address] Initial Review Date: 12/14/2019 Generated: 12/29/19 6:01 pm Comments DCP- Discharge Planning Updated by [id number]: Deborah Diane on 12/29/19 4:[address] Patient Name: JUSTA COLIN Encounter No: [id number] : 1970 Primary Insurance: MEDICAID [place] PENDING Anticipated DC Date: Planned Disposition: Home External Planned Provider: : Late entry DCP follow-up note: Received call from Estelle about HD chair availability. Stated the chair will be available tomorrow if the patient is dc. Updated Dr Hope and family. Received orders to dc patient. called taxi to provide transportation for patient and her grandson. Patient and family in agreement with discharge plan. Deborah Diane DCP- Discharge Planning Updated by [id number]: Randy Godfrey on 12/23/19 5:[address] Patient Name: JUSTA COLIN Encounter No: [id number] : 1970 Primary Insurance: MEDICAID [place] PENDING Anticipated DC Date: Planned Disposition: Home DCP follow-up note: CM SPOKE TO BIANCA OF [facility], THE DIALYSIS UNITS REQUIRE PROOF THAT PT HAS FILED FOR MEDICAID FOR OUTPATIENT PLACEMENT. CM SPOKE TO [employer] WHO INFORMED CM THAT PT IS PENDING MEDICAID APPROVAL THROUGH [employer] [facility] FOR DECEMBER 31, MEDICAID #[id number]. THIS MEDICAID WILL ONLY BE ACTIVE FOR SHORT TIME PT HAS OUT OF STATE MEDICAID THROUGH [employer] AND PT WILL NEED TO APPLY WITH SOCIAL SECURITY FOR MEDICAID IN [place]. CM NOTIFIED BIANCA. CM NOTIFIED PT IN ROOM WHO REPORTS UNDERSTANDING. CM WAITIN OUTPATIENT DIALYSIS CLINIC ARRANGEMENT. Channel Turner: Randy Godfrey DCP- Discharge Planning Updated by [email or web address]: Randy Godfrey on 12/15/19 1:[address] Patient Name: JUSTA COLIN Admission Status: ER Accout number: [id number] Admission Date: 12-13-2019 : 1970 Admission Diagnosis: Attending: EDGAR HOPE Current LOS: 2 Anticipated DC Date: Planned Disposition: Home Primary Insurance: MEDICAID [place] PENDING Discharge Planning Comments: CM MET WITH PT IN ROOM TO DISCUSS ORDER FOR PLACEMENT, DISCHARGE PLANNING AND NEEDS. PT DECLINES ANY PLACEMENT, REPORTS HAVING SAFE PLACE TO STAY; REPORTS LIVING AT HOME DEPENDENTLY WITH HER SISTER IN [place]. PT'S SISTER AND DAUGHTER HELP PT WITH MEDICATION MANAGEMENT. CM VERFIED HOME ADDRESS OF [address] [place] [address] IN [place]. PT HAS A BROKEN WALKER WITH NO MEDICAL EQUIPMENT PROVIDER PREFERENCE AND NO OUTSIDE SERVICES ASSISTING IN THE HOME. PT REPORTS MOVING FROM [place] ONE WEEK AGO ON EMERGENCY BASIS. PT DID NOT HAVE TIME TO ARRANGE OUTPATIENT DIALYSIS, STATES SHE ASKED [facility] IN [facility]. TO SEND RECORDS TO [facility] IN [place]. PT HAS NOT CALLED SOCIAL SECURITY DISABILITY TO CHANGE HER ADDRESS OF YET BUT PLANS TO DO SO TOMORROW. PT STATES SHE HAD MEDICAID IN [place] AND MET WITH A ANDREAS [facility] WHO IS GOING TO HELP AND DIRECTED HER TO CALL SOCIAL SECURITY. CM PROVIDED PT WITH THE NATIONAL SOCIAL SECURITY NUMBER [facility]LL [facility] PHONE NUMBER. CM DISCUSSED AVAILABILITY OF HOME HEALTH, REHAB SERVICES AND MEDICAL EQUIPMENT. PT DENIES DISCHARGE NEEDS, REPORTS HER FAMILY WILL PICK HER UP FOR DISCHARGE HOME. CM REVIEWED CHART AND SPOKE TO JANET MACKEY WHO PROVIDED ORDER FOR OUTPATIENT DIALYSIS UNIT PLACEMENT. CM NOTIFIED [facility], , AND FAXED FACE SHEET TO BIANCA AT [phone]. PT DECLINES PLACEMENT, REPORTS PLAN TO DISCHARGE HOME WITH ADULT DAUGHTER AND SISTER. CM WAITING OUTPATIENT DIALYSIS CLINIC ARRANGEMENT. Channel Turner: Randy Godfrey DCP- Discharge Planning Updated by [email or web address]: Randy Godfrey on 12/15/19 8:[address] Patient Name: JUSTA COLIN Encounter No: [id number] : 1970 Primary Insurance: UNINSURED DISCOUNT PLAN Anticipated DC Date: Planned Disposition: External Planned Provider: : DCP follow-up note: CM ATTEMPTED TO MEET WITH PT FOR INITIAL ASSESSMENT OF DISCHARGE NEEDS. PT WAS IN THE BATHROOM AT APPROXIMATELY 0930 HOURS. CM TO ATTEMPT ASSESSMENT OF PT AT A LATER TIME. TONI Duenas DCP- Discharge Planning Updated by [email or web address]: Randy Godfrey on 12/15/19 8:[address] Patient Name: JUSTA COLIN Encounter No: [id number] : 1970 Primary Insurance: UNINSURED DISCOUNT PLAN Anticipated DC Date: Planned Disposition: External Planned Provider: : LATE ENTRY FROM 12-14-19, 1452 HOURS: DCP follow-up note: ON 12-14-19, CM ATTEMPTED TO MEET WITH PT FOR INITIAL ASSESSMENT OF DISCHARGE NEEDS. PT WAS NOT IN ROOM AT APPROXIMATELY 1452 HOURS. CM TO ATTEMPT ASSESSMENT OF PT AT A LATER TIME. TONI DUENAS DCP- Discharge Planning Updated by [email or web address]: Randy Godfrey on 12/14/19 12:[address] Patient Name: JUSTA COLIN Admission Status: ER Accout number: [id number] Admission Date: 12-13-2019 : 1970 Admission Diagnosis: Attending: EDGAR HOPE Current LOS: 1 Anticipated DC Date: Planned Disposition: Primary Insurance: UNINSURED DISCOUNT PLAN Discharge Planning Comments: CM RECEIVED ORDER FOR PLACEMENT, ATTEMPTED TO MEET WITH PT FOR INITIAL ASSESSMENT OF DISCHARGE NEEDS. NOTIFED PT IS IN DIALYSIS PT WAS NOT IN ROOM AT APPROXIMATELY 1300 HOURS. CM TO ATTEMPT TO ADDRESS ORDER AND COMPLETE ASSESSMENT OF PT AT A LATER TIME. Channel Turner: Randy Godfrey DCPIA - Discharge Planning Initial Assessment Updated by [id number]: Randy Godfrey on 12/15/19 2:24 pm * Is the patient Alert and Oriented? Yes * How many steps to enter\exit or inside your home? * PCP NONE * Pharmacy [facility] IN [place] * Preadmission Environment Home with Family * ADLs Partial Dependent * Partial ADLs (Assistance needed) Medication Management * Equipment Walker * Other Equipment REPORTS WALKER IS BROKEN NO MEDICAL EQUIPMENT PROVIDER PREFERENCE * List name and contact numbers for known caregivers / representatives who currently or will assist patient after discharge: ALFREDO CAT, DTR, FRANCISCO JAVIERTERRA COLIN, SISTER, * Verbal permission to speak to the caregivers and representatives has been obtained from the patient. Yes * Community resources currently utilized Other * Please name any agencies selected above. LAST OUTPATIENT DIALYSIS UNIT IN [place]. [facility], [facility] * Additional services required to return to the preadmission environment? Yes * Can the patient safely return to the preadmission environment? Yes * Has this patient been hospitalized within the prior 30 days at any hospital? No Last DP export: 12/29/19 7:30 a Patient Name: JUSTA COLIN Page 88985 at 1701 All edits/amendments must be made on the electronic document DICTATION DATE: 12/29/191700 HUMAN RESOURCE MANAGER: AMRIT 12/29/191700 RPT#: [id number] DC DATE:12/28/19 STATUS: DIS IN [facility] [address] [place] [address] END OF REPORT
== END 2019-12-28 17:45 | disposition home or self-care (01) | DRG 291 ==
LOC: D.ER 14:36 → D.M2 21:35 → OBSVTIME 21:35 → D.M2 21:35
PROVIDERS: Emergency Medicine; Family Medicine; Internal Medicine; Internal Medicine Nephrology; ADMIT Internal Medicine Nephrology; ATTEND Internal Medicine Nephrology
PROC: 5A1D70Z Performance of Urinary Filtration, Intermittent, Less than 6 Hours Per Day (ICD-10-PCS; principal; 2019-12-14)
DX: I13.2 Hypertensive heart and chronic kidney disease with heart failure and with stage 5 chronic kidney disease, or end stage renal disease (principal); N18.6 End stage renal disease; G93.41 Metabolic encephalopathy; N25.81 Secondary hyperparathyroidism of renal origin; E11.22 Type 2 diabetes mellitus with diabetic chronic kidney disease; Z99.2 Dependence on renal dialysis; Z91.15 Patient's noncompliance with renal dialysis; I50.9 Heart failure, unspecified; D63.1 Anemia in chronic kidney disease; E11.319 Type 2 diabetes mellitus with unspecified diabetic retinopathy without macular edema; E11.40 Type 2 diabetes mellitus with diabetic neuropathy, unspecified; E11.21 Type 2 diabetes mellitus with diabetic nephropathy; E87.5 Hyperkalemia; D50.9 Iron deficiency anemia, unspecified; E11.65 Type 2 diabetes mellitus with hyperglycemia; K21.9 Gastro-esophageal reflux disease without esophagitis; Z86.73 Personal history of transient ischemic attack (TIA), and cerebral infarction without residual deficits; F43.20 Adjustment disorder, unspecified

== ENCOUNTER 2020-03-20 17:55 | Inpatient (IN) | payer MEDICAID ==
[~2020-03-20] VITALS: Ht 157.5 cm; Wt 103.8 kg
[~2020-03-20 17:55] MED LIST: GABAPENTIN100 MG PO; METOPROLOL TART25 MG PO; NEURONTIN 300300 MG PO; PEPCID40 MG PO; PROTONIX40 MG PO; RENVELA800 MG PO
[2020-03-20 20:45] VITALS: BP 108/52
[2020-03-20 22:28] LABS: HEMATOCRIT 27.8 % (36.0-48.0); MCH 26.5 pg (26.0-34.0); MCHC 32.4 g/dL (31.0-37.0); MCV 81.8 fL (80.0-100.0); MEAN PLATELET VOLUME 9.8 fL (7.4-10.4); RDW 16.1 % (11.5-14.5); WBC 15.2 10x3/uL (4.8-10.8)
[2020-03-20 22:38] LABS: INR 1.08 (0.85-1.17); PROTIME 13.9 SECONDS (11.6-15.0)
[2020-03-20 22:39] LABS: ANION GAP 23.9 mmol/L (8-16); CALCIUM 8.3 mg/dL (8.5-10.1); CARBON DIOXIDE 22.1 mmol/L (21.0-32.0); CREATININE - SERUM 10.2 mg/dL (0.6-1.3)
[2020-03-20 22:50] LABS: PLATELET COUNT 407 10x3/uL (130-400)
[2020-03-20 22:52] LABS: ALBUMIN 2.4 g/dL (3.4-5.0); BILIRUBIN - TOTAL 0.35 mg/dL (0.2-1.3); PROTEIN - SERUM 8.5 g/dL (6.4-8.2)
[2020-03-20 22:56] LABS: EOSINOPHILS 4 % (0-7); LYMPHOCYTES 28 % (15-50); MONOCYTES 4 % (2-11); NEUTROPHILS 64 % (40-80); PLATELET ESTIMATE NORMAL
[2020-03-20 23:14] LABS: C-REACTIVE PROTEIN 13.2 mg/dL (0.0-0.9)
[2020-03-21] VITALS: BP 110/78
[2020-03-21 04:00] VITALS: BP 103/51
[2020-03-21] MEDS ORDERED: LANTUS INS100 UNITS/ SC (06:00)
[2020-03-21 09:24] VITALS: BP 81/43
[2020-03-21 12:14] VITALS: BP 101/46
[2020-03-21 12:18] VITALS: Ht 157.5 cm; Wt 103.8 kg
--- NOTE | 2020-03-21 12:27 | NUR ---
RECEIVED PT FROM RECOVERY. VSS AND WNL. NO S/S OF DISTRESS NOTED. PT DENIES ANY NEEDS WILL CTM.
--- NOTE | 2020-03-21 14:24 | NUR ---
Pt had debridement today in OR. Perirectal wound packed with kerlix soaked in dakins. Wound care will monitor as needed.
[2020-03-21 17:01] VITALS: BP 92/42
--- NOTE | 2020-03-21 19:30 | NUR ---
PT IN BED, EYES CLOSED, RESP EVEN AND UNLABORED. NO DISTRESS NOTED, CL IN REACH, SR UP X 2.
[2020-03-21 20:00] VITALS: BP 104/58
[2020-03-22] VITALS: BP 121/69
[2020-03-22 04:00] VITALS: BP 99/35
--- NOTE | 2020-03-22 09:30 | OP ---
PATIENT NAME: JUSTA COLIN MEDICAL RECORD: [id number] :[birth year] LOCATION:D.M2 D.2105 ADMISSION DATE:03/20/20 SURGEON: ELIJAH DELANEY MD DATE OF OPERATION: 03/21/2020 PREOPERATIVE DIAGNOSIS: Kai gangrene. POSTOPERATIVE DIAGNOSES: No Kai's gangrene; however, there is a sacral decubitus ulcer. Please see dimensions below. 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 This is a cavitary ulcer. The debridement included skin, subcutaneous tissue, fascia, periosteum necrotic adipose tissue. The debridement was carried out back to viable bleeding tissue. This was a sharp debridement. The necrotic eschar measured 4 cm x 6 cm. The excised defect measured 8.5 x 9.0 cm. There was undermining from 6 o'clock to 8 o'clock of 1 cm. There was tunneling at the 2 o'clock position of 6 cm. The depth of the wound was 4.2 cm. SURGEON: Elijah Delaney MD INTENSIVE CARE SPECIALIST: None. BLOOD LOSS: 100 cc. ANESTHESIA: General. COMPLICATIONS: None. The risks, possible complications and alternatives to the procedure were explained to the patient. She elects to proceed. OPERATIVE COURSE: The patient was conveyed to the operating room urgently on 03/21/2020. General anesthesia was induced by the anesthesia staff. The patient was positioned in the in the lithotomy position. However, in the lithotomy position, we were unable to get to the area where the require debridement. The patient was then positioned in the prone position. The buttocks and perineum and lower back were sterilely prepped and draped. The eschar overlied the sacrum and the left buttock. Dimensions were obtained. I excised the necrotic cap. Cultures were obtained. A good bit of purulence was identified. I then began to excise sequentially small areas of the necrotic tissue until I was able to debride back to viable bleeding tissue. Further dimensions were obtained. Hemostasis was achieved with electrocautery. I then irrigated the wound with hydrogen peroxide. I then packed the wound with a 6-inch Kerlix that have been soaked in quarter strength Dakin's. A sterile dressing was applied. The patient was then extubated and conveyed to post-anesthesia care unit where she was in stable condition. She will be continued on IV antibiotics. TRANSINT:[id number] Voice Confirmation ID: [id number] DOCUMENT ID: [id number] OPERATIVE REPORT [id number] JUSTA COLIN, ELIJAH VAUGHN at 0930 CC: [id number] DICTATION DATE: 03/21/20 1505 MEDIA RELATIONS INTERN: 03/22/20 0106 ADM IN [facility] [address] [place] [address]
[2020-03-22 10:27] VITALS: BP 99/44
--- NOTE | 2020-03-22 12:24 | NUR ---
Per Dr. 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 Wound was surgically debrided yesterday. It is packed with kerlix soaked in 1/4 strength Dakins solution. Plan is for removal of packing tomorrow (03/23) and placement of a wound vac. Wound care continues to monitor.
[2020-03-22 14:00] VITALS: BP 111/51
--- NOTE | 2020-03-22 14:56 | NUR ---
PT C/O PAIN IN PERIRECTAL INCISION. PAIN MEDICATION RECIEVED. SENT TO DIALYSIS [facility] BED
--- NOTE | 2020-03-22 16:37 | MORECARE ---
CASE MANAGEMENT DISCHARGE SUMMARY PATIENT: JUSTA COLIN UNIT: [id number] ADM DATE: 03/20/20 AGE: 49 : 68 SEX: F ROOM/BED: D.2104 AUTHOR: JESSIE KENNY PHYSICIAN: REFERRING PHYSICIAN: MANOLO MOSHER MD DATE OF SERVICE: 03/22/20 Discharge Plan Patient Name: JUSTA COLIN Facility: [facility]:[place] : 1970 Planned Disposition: Home with Home Health Anticipated Discharge Date: Discharge Date: Expected LOS: Initial Reviewer: [email or web address] Initial Review Date: 03/22/2020 Generated: 03/22/20 5:37 pm Comments DCP- Discharge Planning Updated by [email or web address]: Kathie Garcia on 03/22/20 10:[address] Wound vac clinical and order faxed to [facility]. External Providers External Provider: OTHER-OTHER Next Contact Date: Service Request Date: Service Type: Resolution: Reviewer: Comments: External Provider: [facility] [employer] Next Contact Date: Service Request Date: Service Type: Resolution: Reviewer: Comments: Patient Name: JUSTA COLIN Page 67644 at 1637 All edits/amendments must be made on the electronic document DICTATION DATE: 03/22/20 1637 RECYCLE WORKER: AMRIT 03/22/20 1637 RPT#: [id number] DC DATE: STATUS: ADM IN [place] [address] [place] [address] END OF REPORT
--- NOTE | 2020-03-22 16:47 | MORECARE ---
CASE MANAGEMENT DISCHARGE SUMMARY PATIENT: JUSTA ARMSTRONG UNIT: [id number] ADM DATE: 03/20/20 AGE: 49 : 68 SEX: F ROOM/BED: D.2108 AUTHOR: JESSIE KENNY PHYSICIAN: REFERRING PHYSICIAN: MANOLO MOSHER MD DATE OF SERVICE: 03/22/20 Discharge Plan Patient Name: JUSTA ARMSTRONG Facility: [facility]:[place] : 1970 Planned Disposition: Home with Home Health Anticipated Discharge Date: Discharge Date: Expected LOS: Initial Reviewer: [email or web address] Initial Review Date: 03/22/2020 Generated: 03/22/20 5:46 pm Comments DCP- Discharge Planning Updated by [email or web address]: Kathie Garcia on 03/22/20 10:[address] Wound vac clinical and order faxed to [facility]. DCPIA - Discharge Planning Initial Assessment Updated by [email or web address]: Kathie Garcia on 03/22/20 4:39 pm * Is the patient Alert and Oriented? Yes * How many steps to enter\exit or inside your home? 5/0 * PCP No PCP * [facility] [place] * Preadmission Environment Home with Family * ADLs Partial Dependent * Partial ADLs (Assistance needed) Ambulation * Equipment Walker * List name and contact numbers for known caregivers / representatives who currently or will assist patient after discharge: Caitlin Perry - DTR - [phone] Maricruz Armstrong - sister - [phone] Jaylen Toribio - son * Verbal permission to speak to the caregivers and representatives has been obtained from the patient. Yes * Community resources currently utilized Other * Please name any agencies selected above. Dialysis in [place] TTA at 1200 * Additional services required to return to the preadmission environment? Yes * Can the patient safely return to the preadmission environment? Yes * Has this patient been hospitalized within the prior 30 days at any hospital? No Last DP export: 03/22/20 3:37 p Patient Name: JUSTA ARMSTRONG Page 10643 at 1640 All edits/amendments must be made on the electronic document DICTATION DATE: 03/22/201645 DREDGE HAND: AMRIT 03/22/201645 RPT#: [id number] DC DATE: STATUS: ADM IN [facility] [address] [place] [address] END OF REPORT
--- NOTE | 2020-03-22 16:57 | MORECARE ---
CASE MANAGEMENT DISCHARGE SUMMARY PATIENT: JUSTA ARMSTRONG UNIT: [id number] ADM DATE: 03/20/20 AGE: 49 : 68 SEX: F ROOM/BED: D.2102 AUTHOR: EFRAÍN,DOC PHYSICIAN: REFERRING PHYSICIAN: MANOLO MOSHER MD DATE OF SERVICE: 03/22/20 Discharge Plan Patient Name: JUSTA ARMSTRONG Facility: [facility] : 1970 Planned Disposition: Home with Home Health Anticipated Discharge Date: Discharge Date: Expected LOS: Initial Reviewer: [email or web address] Initial Review Date: 03/22/2020 Generated: 03/22/20 5:57 pm Comments DCP- Discharge Planning Updated by [email or web address]: Kathie Garcia on 03/22/20 3:[address] Patient Name: JUSTA ARMSTRONG Admission Status: ER Accout number: [id number] Admission Date: 03-20-2020 : 1970 Admission Diagnosis:PRESSURE ULCER OF SACRAL REGION, STAGE 4 Attending: MANOLO MOSHER Current LOS: 2 Anticipated DC Date: Planned Disposition: Home with Home Health Primary Insurance: MEDICAID [place] Discharge Planning Comments: CM met with patient to discuss discharge planning/needs. I have received authorization for the home wound vac and will get it from when closer to [place]. She states she lives with her adult daughter and son. Her sister will take her home on discharge. She is asking for a walker and shower chair on discharge. I will need an order from attending physician for this. She states to use a [employer] in [place] for this and have it delivered. SHELLEY for [facility] for wound vac and [facility] signed. I called [employer] [facility] in [place] and spoke with Carol and clinical faxed. She has dialysis at [facility] on [address] at [address]. States she no longer drives, but has the [employer] bus transport her where she needs to go. I attempted to call her daughter and sister for further needs and left a message with my call back number. I notified Amy Hart of admission. CM will continue to follow and assist with discharge planning/needs. [facility] - [address] Phone - [phone] [facility] in [place] - Office - [phone] Fax - [phone] Distribution Lead: Kathie Garcia DCP- Discharge Planning Updated by [email or web address]: Kathie Garcia on 03/22/20 10:[address] Wound vac clinical and order faxed to [facility]. DCPIA - Discharge Planning Initial Assessment Updated by [email or web address]: Kathie Garcia on 03/22/20 4:39 pm * Is the patient Alert and Oriented? Yes * How many steps to enter\exit or inside your home? 5/0 * PCP No PCP * Pharmacy [facility] in [place] * Preadmission Environment Home with Family * ADLs Partial Dependent * Partial ADLs (Assistance needed) Ambulation * Equipment Walker * List name and contact numbers for known caregivers / representatives who currently or will assist patient after discharge: Caitlin Toribio - DTR - [phone] Maricruz Armstrong - sister - [phone] Jaylen Toribio - son * Verbal permission to speak to the caregivers and representatives has been obtained from the patient. Yes * Community resources currently utilized Other * Please name any agencies selected above. Dialysis in [facility] at 1200 * Additional services required to return to the preadmission environment? Yes * Can the patient safely return to the preadmission environment? Yes * Has this patient been hospitalized within the prior 30 days at any hospital? No Coverage Notice Reviewer: [id number] - Kathie Garcia Notice Issued Date-Time: 03/22/2020 16:48 Notice Type: Patient Choice Letter Notice Delivered To: Patient Relationship to Patient: Self Fiberglass Luggage Molder Name: Delivery Method: HAND - Hand Delivered Nadine Days: Prior Verbal Notification: Recipient Understood Notice: Yes Recipient Signature: Yes Med Rec Note Co-signed by Attending: Coverage Notice Comment: SHE[facility]LEY for [facility] [facility] Last DP export: 03/22/20 3:47 p Patient Name: JUSTA ARMSTRONG Page [id number] at 1657 All edits/amendments must be made on the electronic document DICTATION DATE: 03/22/201656 DISTRIBUTION LEAD: AMRIT 03/22/201656 RPT#: [id number] DC DATE: STATUS: ADM IN [facility] [address] [place] [address] END OF REPORT
--- NOTE | 2020-03-22 17:06 | NUR ---
I have reviewed this patient and I concur with the Shift Assessment completed by the Licensed Practical Nurse today this shift.
--- NOTE | 2020-03-22 19:30 | NUR ---
PT IN BED, EYES CLOSED, RESP EVEN AND UNLABORED, NO DISTRESS NOTED, CL IN REACH, SR UP X 2.
[2020-03-22 20:00] VITALS: BP 104/59
[2020-03-23 00:33] VITALS: BP 91/58
--- NOTE | 2020-03-23 03:40 | NUR ---
I have reviewed this patient and I concur with the Shift Assessment completed by the Licensed Practical Nurse today this shift.
[2020-03-23 04:00] VITALS: BP 97/45
[2020-03-23 07:50] LABS: HEMOGLOBIN 7.6 g/dL (12-16); MCH 26.4 pg (26.0-34.0); MCHC 31.7 g/dL (31.0-37.0); MCV 83.3 fL (80.0-100.0); MEAN PLATELET VOLUME 9.5 fL (7.4-10.4); PLATELET COUNT 373 10x3/uL (130-400); RBC 2.88 10x6/uL (4.00-5.40); RDW 16.1 % (11.5-14.5)
[2020-03-23 07:56] LABS: ANION GAP 22.9 mmol/L (8-16); CALCIUM 8.9 mg/dL (8.5-10.1); CARBON DIOXIDE 18.7 mmol/L (21.0-32.0); CREATININE - SERUM 9.1 mg/dL (0.6-1.3); POTASSIUM - SERUM 4.6 mmol/L (3.5-5.1)
[2020-03-23 07:57] VITALS: BP 105/44
[2020-03-23 08:10] LABS: BASOPHILS 1 % (0-2); EOSINOPHILS 2 % (0-7); LYMPHOCYTES 21 % (15-50); NEUTROPHILS 74 % (40-80); PLATELET ESTIMATE NORMAL
[2020-03-23 08:11] LABS: ANISOCYTOSIS OCC; ROULEAUX OCC; TARGET CELLS 1+
--- NOTE | 2020-03-23 09:22 | NUR ---
Wound vac dressing applied to open wound on sacrum. The wound measures 8.5cm x 9cm x 6cm x 3cm from 6-2 oclock. Wound bed is red and no necrotic tissue is noted. There was a slight odor when surgical dressing was removed. No bone was seen. 2 black sponges (on top of each other) were used to pack wound. Paste was applied to dimples of skin at 12 and 6 oclock as filler. Drape was applied covering the entire wound, sponge and paste. Immediate negative pressure was achieved. Pt tolerated very well. Settings: -125mmhg low continuous Teaching: Discussed with pt the purpose of the vac and the frequency of dressing changes. She voiced her understanding.
[2020-03-23 09:58] LABS: HEMATOCRIT 23.6 % (36.0-48.0); HEMOGLOBIN 7.7 g/dL (12-16)
--- NOTE | 2020-03-23 10:20 | NUR ---
Nutrition Follow-up: Noted pt with stage [address] Castillo. Ate well this AM per record. Agreed to try New with lunch today to promote wound healing. Diet: Renal Wt: 228.8# (03/21) No BMs recorded Labs noted: Na 135, K+ 4.6, Glu 147 Meds noted: Protonix, Lantus, Pepcid, Renagel -Changed to renal ADA diet. -Will send New with lunch today for pt trial. -Encourage PO intake and honor food preferences within diet restrictions. -Monitor wt. -RD following.
[2020-03-23] MEDS ORDERED: HYDROCODON-ACE1 EAC7 PO (10:53)
[2020-03-23] MEDS ORDERED: CLINDAMYCIN HC300 MG PO (10:54)
--- NOTE | 2020-03-23 11:18 | NUR ---
WRITTEN SCRIPT FOR NORCO 5 MG COPIED AND PLACED INTO CHART ALONG WITH WRITTEN SCRIPT
[2020-03-23 11:21] VITALS: BP 101/54
--- NOTE | 2020-03-23 13:39 | MORECARE ---
CASE MANAGEMENT DISCHARGE SUMMARY PATIENT: JUSTA ARMSTRONG UNIT: [id number] ADM DATE: 03/20/20 AGE: 49 : 68 SEX: F ROOM/BED: D.2109 AUTHOR: EFRAÍN,DOC PHYSICIAN: REFERRING PHYSICIAN: MANOLO MOSHER MD DATE OF SERVICE: 03/23/20 Discharge Plan Patient Name: JUSTA ARMSTRONG Facility: [facility]:[place] : 1970 Planned Disposition: Home with Home Health Anticipated Discharge Date: Discharge Date: Expected LOS: Initial Reviewer: [id number] Initial Review Date: 03/22/2020 Generated: 03/23/20 2:38 pm Comments DCP- Discharge Planning Updated by [id number]: Kathie Garcia on 03/23/20 12:[address] CM spoke with Vangie Duarte APN for Dr. Jaramillo about discharge planning/needs. She states that she would like patient to go to a care home. States she has had self neglect/urgent care technician neglect and with her wound would need more care. I spoke with the patient and she declines care home. She states that her brother and mother were in nursing homes and she is not going to go. She states that she is able to care for herself. States that she bathes and dresses her self and that her family did not know she had a wound until they noticed a smell. I informed Desire that patient was refusing care home and she is cancelling discharge for now. I spoke with the daughter in the room when patient called her, she states she cannot speak with me right now, but will call me back. I gave her my number to call me and she has not returned my call. I called APS per Vangie's recommendation and spoke with Madelaine and reported self neglect/possible urgent care technician neglect. CM will continue to follow and assist with discharge planning/needs. DCP- Discharge Planning Updated by [id number]: Kathie Garcia on 03/22/20 3:[address] Patient Name: JUSTA ARMSTRONG Admission Status: ER Accout number: [id number] Admission Date: 03-20-2020 : 1970 Admission Diagnosis:PRESSURE ULCER OF SACRAL REGION, STAGE 4 Attending: MANOLO MOSHER Current LOS: 2 Anticipated DC Date: Planned Disposition: Home with Home Health Primary Insurance: MEDICAID [place] Discharge Planning Comments: CM met with patient to discuss discharge planning/needs. I have received authorization for the home wound vac and will get it from when closer to [place]. She states she lives with her adult daughter and son. Her sister will take her home on discharge. She is asking for a walker and shower chair on discharge. I will need an order from attending physician for this. She states to use a [employer] in [place] for this and have it delivered. SHELLEY for [facility] for wound vac and [facility] signed. I called [facility] in [place] and spoke with Carol and clinical faxed. She has dialysis at [facility] in [facility] on [address] at [address]. States she no longer drives, but has the [employer] bus transport her where she needs to go. I attempted to call her daughter and sister for further needs and left a message with my call back number. I notified Amy Hart of admission. CM will continue to follow and assist with discharge planning/needs. [facility] - [address] Phone - [phone] [facility] in [place] - Office - [phone] Fax - [phone] Linking Machine Operator: Kathie Garcia DCP- Discharge Planning Updated by [email or web address]: Kathie Garcia on 03/22/20 10:[address] Wound vac clinical and order faxed to [facility]. DCPIA - Discharge Planning Initial Assessment Updated by [email or web address]: Kathie Garcia on 03/22/20 4:39 pm * Is the patient Alert and Oriented? Yes * How many steps to enter\exit or inside your home? 5/0 * PCP No PCP * Pharmacy [facility] in [place] * Preadmission Environment Home with Family * ADLs Partial Dependent * Partial ADLs (Assistance needed) Ambulation * Equipment Walker * List name and contact numbers for known caregivers / representatives who currently or will assist patient after discharge: Caitlin Toribio - DTR - [phone] Maricruz Armstrong - sister - [phone] Jaylen Toribio - son * Verbal permission to speak to the caregivers and representatives has been obtained from the patient. Yes * Community resources currently utilized Other * Please name any agencies selected above. Dialysis in [facility] at 1200 * Additional services required to return to the preadmission environment? Yes * Can the patient safely return to the preadmission environment? Yes * Has this patient been hospitalized within the prior 30 days at any hospital? No Coverage Notice Reviewer: [id number] Monie Garcia Notice Issued Date-Time: 03/22/2020 16:48 Notice Type: Patient Choice Letter Notice Delivered To: Patient Relationship to Patient: Self Vegetable Picker Name: Delivery Method: HAND - Hand Delivered Nadine Days: Prior Verbal Notification: Recipient Understood Notice: Yes Recipient Signature: Yes Med Rec Note Co-signed by Attending: Coverage Notice Comment: [facility] for [employer] [facility] Last DP export: 03/22/20 3:57 p Patient Name: JUSTA ARMSTRONG Page 04552 at 1339 All edits/amendments must be made on the electronic document DICTATION DATE: 03/23/201337 STRAIGHT KNIFE MACHINE CUTTER: AMRIT 03/23/20 1338 RPT#: [id number] DC DATE: STATUS: ADM IN [facility] [address] [place] [address] END OF REPORT
--- NOTE | 2020-03-23 14:06 | MORECARE ---
CASE MANAGEMENT DISCHARGE SUMMARY PATIENT: JUSTA ARMSTRONG UNIT: [id number] ADM DATE: 03/20/20 AGE: 49 : 68 SEX: F ROOM/BED: D.2101 AUTHOR: EFRAÍN,DOC PHYSICIAN: REFERRING PHYSICIAN: MANOLO MOSHER MD DATE OF SERVICE: 03/23/20 Discharge Plan Patient Name: JUSTA ARMSTRONG Facility: [facility]:[place] : 1970 Planned Disposition: Home with Home Health Anticipated Discharge Date: Discharge Date: Expected LOS: Initial Reviewer: [id number] Initial Review Date: 03/22/2020 Generated: 03/23/20 3:05 pm Comments DCP- Discharge Planning Updated by [id number]: Kathie Garcia on 03/23/20 12:[address] CM spoke with Vangie Duarte APN for Dr. Jaramillo about discharge planning/needs. She states that she would like patient to go to a [place]. States she has had self neglect/critical care physician assistant neglect and with her wound would need more care. I spoke with the patient and she declines [place]. She states that her brother and mother were in nursing homes and she is not going to go. She states that she is able to care for herself. States that she bathes and dresses her self and that her family did not know she had a wound until they noticed a smell. I informed Desire that patient was refusing [place] and she is cancelling discharge for now. I spoke with the daughter in the room when patient called her, she states she cannot speak with me right now, but will call me back. I gave her my number to call me and she has not returned my call. I called APS per Vangie's recommendation and spoke with Madelaine and reported self neglect/possible critical care physician assistant neglect. CM will continue to follow and assist with discharge planning/needs. DCP- Discharge Planning Updated by [email or web address]: Kathie Garcia on 03/22/20 3:[address] Patient Name: JUSTA ARMSTRONG Admission Status: ER Accout number: [id number] Admission Date: 03-20-2020 : 1970 Admission Diagnosis:PRESSURE ULCER OF SACRAL REGION, STAGE 4 Attending: MANOLO MOSHER Current LOS: 2 Anticipated DC Date: Planned Disposition: Home with Home Health Primary Insurance: MEDICAID [place] Discharge Planning Comments: CM met with patient to discuss discharge planning/needs. I have received authorization for the home wound vac and will get it from when closer to [place]. She states she lives with her adult daughter and son. Her sister will take her home on discharge. She is asking for a walker and shower chair on discharge. I will need an order from attending physician for this. She states to use a [employer] in [place] for this and have it delivered. SHELLEY for [facility] for wound vac and [employer] [facility] signed. I called [facility] in [place] and spoke with Carol and clinical faxed. She has dialysis at [facility] in [facility] on [address] at [address]. States she no longer drives, but has the [employer] bus transport her where she needs to go. I attempted to call her daughter and sister for further needs and left a message with my call back number. I notified Amy Hart of admission. CM will continue to follow and assist with discharge planning/needs. [facility] - [address] Phone - [phone] [employer] in [place] - Office - [phone] Fax - [phone] Deck Hand: Kathie Garcia DCP- Discharge Planning Updated by [id number]: Kathie Garcia on 03/22/20 10:[address] Wound vac clinical and order faxed to [facility]. DCPIA - Discharge Planning Initial Assessment Updated by [email or web address]: Kathie Garcia on 03/22/20 4:39 pm * Is the patient Alert and Oriented? Yes * How many steps to enter\exit or inside your home? 5/0 * PCP No PCP * Pharmacy [facility] in [place] * Preadmission Environment Home with Family * ADLs Partial Dependent * Partial ADLs (Assistance needed) Ambulation * Equipment Walker * List name and contact numbers for known caregivers / representatives who currently or will assist patient after discharge: Caitlin Toribio - DTR - [phone] Maricruz Armstrong - sister - [phone] Jaylen Toribio - son * Verbal permission to speak to the caregivers and representatives has been obtained from the patient. Yes * Community resources currently utilized Other * Please name any agencies selected above. Dialysis in [facility] at [address] * Additional services required to return to the preadmission environment? Yes * Can the patient safely return to the preadmission environment? Yes * Has this patient been hospitalized within the prior 30 days at any hospital? No External Providers External Provider: OTHER-OTHER Next Contact Date: Service Request Date: Service Type: Resolution: Reviewer: Comments: Coverage Notice Reviewer: [id number] Monie Kathie Garcia Notice Issued Date-Time: 03/22/2020 16:48 Notice Type: Patient Choice Letter Notice Delivered To: Patient Relationship to Patient: Self Machine Puller Name: Delivery Method: HAND - Hand Delivered Nadine Days: Prior Verbal Notification: Recipient Understood Notice: Yes Recipient Signature: Yes Med Rec Note Co-signed by Attending: Coverage Notice Comment: [facility] for [employer] [facility] Last DP export: 03/23/20 12:39 p Patient Name: JUSTA ARMSTRONG Page 99794 at 1406 All edits/amendments must be made on the electronic document DICTATION DATE: 03/23/20 1405 COMPANY DANCER: AMRIT 03/23/20 1405 RPT#: [id number] DC DATE: STATUS: ADM IN [facility] [address] [place] [address] END OF REPORT
--- NOTE | 2020-03-23 14:24 | MORECARE ---
CASE MANAGEMENT DISCHARGE SUMMARY PATIENT: JUSTA ARMSTRONG UNIT: [id number] ADM DATE: 03/20/20 AGE: 49 : 68 SEX: F ROOM/BED: D.2100 AUTHOR: EFRAÍN,DOC PHYSICIAN: REFERRING PHYSICIAN: MANOLO MOSHER MD DATE OF SERVICE: 03/23/20 Discharge Plan Patient Name: JUSTA ARMSTRONG Facility: [facility]:[place] : 1970 Planned Disposition: Home with Home Health Anticipated Discharge Date: Discharge Date: Expected LOS: Initial Reviewer: [id number] Initial Review Date: 03/22/2020 Generated: 03/23/20 3:24 pm Comments DCP- Discharge Planning Updated by [email or web address]: Kathie Garcia on 03/23/20 1:[address] I called patient's sister, Maricruz, and spoke at length concerning discharge planning/needs. Patient's sister tells me that she will pick her up at discharge and she will be coming to her home to live. States her [address] [place] [address] [address], [facility]. States I can use [employer] or whatever DME company can deliver to her home. I called [employer], and they state they do not have any wheelchairs and do not know when they will get any in. She tells me to call [employer]. I called [employer] and spoke with José Luis. José Luis states they can deliver to the sister's home even on the weekend and to call when patient is discharged. I faxed clinical and order to them for the wheelchair and shower chair. I did find out from the sister that the phone number on face sheet for daughter is incorrect and that it is [phone]. Her wound vac has been approved and will just need to print from [facility] and have central supply bring the home wound vac. Maricruz Armstrong - sister - call on DC [phone] [employer] - [phone] Fax - [phone] DCP- Discharge Planning Updated by [id number]: Kathie Garcia on 03/23/20 12:[address] CM spoke with Vangie Duarte APN for Dr. Jaramillo about discharge planning/needs. She states that she would like patient to go to a penitentiary. States she has had self neglect/disabilities caregiver neglect and with her wound would need more care. I spoke with the patient and she declines penitentiary. She states that her brother and mother were in nursing homes and she is not going to go. She states that she is able to care for herself. States that she bathes and dresses her self and that her family did not know she had a wound until they noticed a smell. I informed Desire that patient was refusing penitentiary and she is cancelling discharge for now. I spoke with the daughter in the room when patient called her, she states she cannot speak with me right now, but will call me back. I gave her my number to call me and she has not returned my call. I called APS per Vangie's recommendation and spoke with Madelaine and reported self neglect/possible disabilities caregiver neglect. CM will continue to follow and assist with discharge planning/needs. DCP- Discharge Planning Updated by [id number]: Kathie Garcia on 03/22/20 3:[address] Patient Name: JUSTA ARMSTRONG Admission Status: ER Accout number: [id number] Admission Date: 03-20-2020 : 1970 Admission Diagnosis:PRESSURE ULCER OF SACRAL REGION, STAGE 4 Attending: MANOLO MOSHER Current LOS: 2 Anticipated DC Date: Planned Disposition: Home with Home Health Primary Insurance: MEDICAID [place] Discharge Planning Comments: CM met with patient to discuss discharge planning/needs. I have received authorization for the home wound vac and will get it from when closer to [place]. She states she lives with her adult daughter and son. Her sister will take her home on discharge. She is asking for a walker and shower chair on discharge. I will need an order from attending physician for this. She states to use a [employer] in [place] for this and have it delivered. SHELLEY for [facility] for wound vac and [facility] signed. I called [facility] in [place] and spoke with Carol and clinical faxed. She has dialysis at [facility] in [facility] on [address] at [address]. States she no longer drives, but has the [employer] bus transport her where she needs to go. I attempted to call her daughter and sister for further needs and left a message with my call back number. I notified Amy MooreJimmy of admission. CM will continue to follow and assist with discharge planning/needs. [facility] - [address] Phone - [phone] [facility] in [place] - Office - [phone] Fax - [phone] Stretcher Drier Operator: Kathie Garcia DCP- Discharge Planning Updated by [id number]: Kathie Garcia on 03/22/20 10:[address] Wound vac clinical and order faxed to [facility]. DCPIA - Discharge Planning Initial Assessment Updated by [email or web address]: Kathie Garcia on 03/22/20 4:39 pm * Is the patient Alert and Oriented? Yes * How many steps to enter\exit or inside your home? 5/0 * PCP No PCP * Pharmacy [facility] in [place] * Preadmission Environment Home with Family * ADLs Partial Dependent * Partial ADLs (Assistance needed) Ambulation * Equipment Walker * List name and contact numbers for known caregivers / representatives who currently or will assist patient after discharge: Caitlin Perry - DTR - [phone] Maricruz Armstrong - sister - [phone] Jaylen Toribio - son * Verbal permission to speak to the caregivers and representatives has been obtained from the patient. Yes * Community resources currently utilized Other * Please name any agencies selected above. Dialysis in [facility] at [address] * Additional services required to return to the preadmission environment? Yes * Can the patient safely return to the preadmission environment? Yes * Has this patient been hospitalized within the prior 30 days at any hospital? No Coverage Notice Reviewer: [id number] - Kathie Garcia Notice Issued Date-Time: 03/22/2020 16:48 Notice Type: Patient Choice Letter Notice Delivered To: Patient Relationship to Patient: Self Turbogenerator Operator Name: Delivery Method: HAND - Hand Delivered Nadine Days: Prior Verbal Notification: Recipient Understood Notice: Yes Recipient Signature: Yes Med Rec Note Co-signed by Attending: Coverage Notice Comment: SHELLEY for [facility] [facility] Last DP export: 03/23/20 1:06 p Patient Name: JUSTA ARMSTRONG Page [id number] at 1424 All edits/amendments must be made on the electronic document DICTATION DATE: 03/23/201423 RETAIL EVENT COORDINATOR: AMRIT 03/23/201423 RPT#: [id number] DC DATE: STATUS: ADM IN [facility] [address] [place] [address] END OF REPORT
--- NOTE | 2020-03-23 16:53 | MORECARE ---
CASE MANAGEMENT DISCHARGE SUMMARY PATIENT: JUSTA ARMSTRONG UNIT: [id number] ADM DATE: 03/20/20 AGE: 49 : 68 SEX: F ROOM/BED: D.210 AUTHOR: EFRAÍN,DOC PHYSICIAN: REFERRING PHYSICIAN: MANOLO MOSHER MD DATE OF SERVICE: 03/23/20 Discharge Plan Patient Name: JUSTA ARMSTRONG Facility: [facility]:[place] : 1970 Planned Disposition: Home with Home Health Anticipated Discharge Date: Discharge Date: Expected LOS: Initial Reviewer: [email or web address] Initial Review Date: 03/22/2020 Generated: 03/23/20 5:53 pm Comments DCP- Discharge Planning Updated by [id number]: Kathie Garcia on 03/23/20 1:[address] I called patient's sister, Maricruz, and spoke at length concerning discharge planning/needs. Patient's sister tells me that she will pick her up at discharge and she will be coming to her home to live. States her address is[address] [place] [address] [address], [facility]. States I can use [employer] or whatever DME company can deliver to her home. I called [employer], and they state they do not have any wheelchairs and do not know when they will get any in. She tells me to call [employer]. I called [employer] [facility] and spoke with José Luis. José Luis states they can deliver to the sister's home even on the weekend and to call when patient is discharged. I faxed clinical and order to them for the wheelchair and shower chair. I did find out from the sister that the phone number on face sheet for daughter is incorrect and that it is [phone]. Her wound vac has been approved and will just need to print from [facility] and have central supply bring the home wound vac. Maricruz Armstrong - sister - call on DC [phone] [facility] - [phone] Fax - [phone] DCP- Discharge Planning Updated by [id number]: Kathie Garcia on 03/23/20 12:[address] CM spoke with Vangie Duarte APN for Dr. Jaramillo about discharge planning/needs. She states that she would like patient to go to a penitentiary. States she has had self neglect/director of critical care neglect and with her wound would need more care. I spoke with the patient and she declines penitentiary. She states that her brother and mother were in nursing homes and she is not going to go. She states that she is able to care for herself. States that she bathes and dresses her self and that her family did not know she had a wound until they noticed a smell. I informed Desire that patient was refusing penitentiary and she is cancelling discharge for now. I spoke with the daughter in the room when patient called her, she states she cannot speak with me right now, but will call me back. I gave her my number to call me and she has not returned my call. I called APS per Vangie's recommendation and spoke with Madelaine and reported self neglect/possible director of critical care neglect. CM will continue to follow and assist with discharge planning/needs. DCP- Discharge Planning Updated by [id number]: Kathie Garcia on 03/22/20 3:[address] Patient Name: JUSTA ARMSTRONG Admission Status: ER Accout number: [id number] Admission Date: 03-20-2020 : 1970 Admission Diagnosis:PRESSURE ULCER OF SACRAL REGION, STAGE 4 Attending: MANOLO MOSHER Current LOS: 2 Anticipated DC Date: Planned Disposition: Home with Home Health Primary Insurance: MEDICAID [place] Discharge Planning Comments: CM met with patient to discuss discharge planning/needs. I have received authorization for the home wound vac and will get it from when closer to [place]. She states she lives with her adult daughter and son. Her sister will take her home on discharge. She is asking for a walker and shower chair on discharge. I will need an order from attending physician for this. She states to use a [employer] in [place] for this and have it delivered. SHELLEY for [facility] for wound vac and [facility] signed. I called [facility] in [place] and spoke with Carol and clinical faxed. She has dialysis at [facility] in [facility] on [address] at [address]. States she no longer drives, but has the [employer] bus transport her where she needs to go. I attempted to call her daughter and sister for further needs and left a message with my call back number. I notified Amy MooreJimmy of admission. CM will continue to follow and assist with discharge planning/needs. [facility] - [address] Phone - [phone] [facility] [place] - Office - [phone] Fax - [phone] Peeler Operator: Kathie Garcia DCP- Discharge Planning Updated by [id number]: Kahtie Garcia on 03/22/20 10:[address] Wound vac clinical and order faxed to [facility]. DCPIA - Discharge Planning Initial Assessment Updated by [email or web address]: Kathie Garcia on 03/22/20 4:39 pm * Is the patient Alert and Oriented? Yes * How many steps to enter\exit or inside your home? 5/0 * PCP No PCP * Pharmacy [facility] in [place] * Preadmission Environment Home with Family * ADLs Partial Dependent * Partial ADLs (Assistance needed) Ambulation * Equipment Walker * List name and contact numbers for known caregivers / representatives who currently or will assist patient after discharge: Caitlin Perry - DTR - [phone] Maricruz Armstrong - sister - [phone] Jaylen Toribio - son * Verbal permission to speak to the caregivers and representatives has been obtained from the patient. Yes * Community resources currently utilized Other * Please name any agencies selected above. Dialysis in [facility] at [address] * Additional services required to return to the preadmission environment? Yes * Can the patient safely return to the preadmission environment? Yes * Has this patient been hospitalized within the prior 30 days at any hospital? No Coverage Notice Reviewer: [id number] - Kathie Garcia Notice Issued Date-Time: 03/22/2020 16:48 Notice Type: Patient Choice Letter Notice Delivered To: Patient Relationship to Patient: Self Probate Clerk Name: Delivery Method: HAND - Hand Delivered Nadine Days: Prior Verbal Notification: Recipient Understood Notice: Yes Recipient Signature: Yes Med Rec Note Co-signed by Attending: Coverage Notice Comment: SHE[facility] for [facility] [facility] Last DP export: 03/23/20 1:24 p Patient Name: JUSTA ARMSTRONG Page [id number] at 1653 All edits/amendments must be made on the electronic document DICTATION DATE: 03/23/201652 FREIGHT REPRESENTATIVE: AMRIT 03/23/201652 RPT#: [id number] DC DATE: STATUS: ADM IN [facility] [address] [place] [address] END OF REPORT
[2020-03-23 16:54] VITALS: BP 113/60
--- NOTE | 2020-03-23 19:30 | NUR ---
PT IN BED, AAOX1, RESP EVEN AND UNLABORED. NO DISTRESS NOTED, CL IN REACH, SR UP X 2.
[2020-03-23 20:32] VITALS: BP 101/62
[2020-03-24] VITALS: BP 113/64
[2020-03-24 05:17] VITALS: BP 119/60
[2020-03-24 05:29] LABS: BASOPHILS 0.1 % (0-2); EOSINOPHILS 1.2 % (0-7); HEMATOCRIT 23.2 % (36.0-48.0); IMMATURE GRANULOCYTES 1.8 % (0-5); LYMPHOCYTES 15.8 % (15-50); MCH 25.8 pg (26.0-34.0); MCV 83.2 fL (80.0-100.0); MEAN PLATELET VOLUME 9.8 fL (7.4-10.4); MONOCYTES 7.9 % (2-11); NEUTROPHILS 73.2 % (40-80); PLATELET COUNT 391 10x3/uL (130-400); RBC 2.79 10x6/uL (4.00-5.40); RDW 15.9 % (11.5-14.5); WBC 12.7 10x3/uL (4.8-10.8)
[2020-03-24 05:41] LABS: HEMOGLOBIN 7.2 g/dL (12-16)
[2020-03-24 05:42] LABS: ANION GAP 21.6 mmol/L (8-16); CALCIUM 8.8 mg/dL (8.5-10.1); CARBON DIOXIDE 20.5 mmol/L (21.0-32.0); CREATININE - SERUM 10.8 mg/dL (0.6-1.3); POTASSIUM - SERUM 5.1 mmol/L (3.5-5.1)
--- NOTE | 2020-03-24 07:00 | NUR ---
RECEIVED REPORT. ASSUMED CARE OF PATIENT. CALL LIGHT WITHIN REACH. PATIENT SLOW TO RESPOND BUT RESPONDS APPROPRIATELY. NO DISTRESS. WOUND VAC PATENT. DRESSING TO LEFT LOWER EXTREMITY. DENIES NEEDS AT THIS TIME.
--- NOTE | 2020-03-24 07:30 | NUR ---
ASSISTED PATIENT TO BSC AND BACK TO BED. NO DISTRESS.
--- NOTE | 2020-03-24 08:15 | NUR ---
[facility]ANK NOTIFIED THAT PATIENT IS TO RECEIVE BLOOD TRANSFUSION ON DIALYSIS TODAY.
[2020-03-24 09:49] VITALS: BP 131/67
--- NOTE | 2020-03-24 11:46 | NUR ---
PATIENT TRANSPORTED VIA BED TO DIALYSIS AT THIS TIME. NO DISTRESS. PATIENT TO HAVE BLOOD TRANSFUSION DURING DIALYISIS TREATMENT.
--- NOTE | 2020-03-24 12:57 | NUR ---
REQUEST PLACED TO PHARMACY TO ADJUST ADMINISTRATION TIMES OF ABX DUE TO PATIENT IS RECEIVING DIALYSIS AT THIS TIME AND CANNOT RECEIVE THE ABX.
[2020-03-24 13:50] VITALS: BP 114/61
--- NOTE | 2020-03-24 13:59 | NUR ---
2ND UNIT OF PRBCs TAKEN TO DIALYSIS FOR ADMINISTRATION. PATIENT TOLERATED 1ST UNIT WELL.
--- NOTE | 2020-03-24 16:11 | NUR ---
PATIENT RETURN TO UNIT VIA BED FROM DIALYSIS. PATIENT LOST APPROX 100ML OF BLOOD DUE TO PULLING OUT HER VENOUS LINE PER THE REPORT FROM THE DIALYSIS NURSE CIARAN. PATIENT TOLERATED 2 UNITS TRANSFERRED WELL. PATIENT CONSUMING LATE LUNCH AT THIS TIME.
[2020-03-24 18:45] VITALS: BP 133/52
--- NOTE | 2020-03-24 19:21 | NUR ---
RECEIVED REPORT, WILL ASSUME CARE OF PT , LYING IN BED WITH SHEET OVERHEAD, DENIES ANY NEEDS, BED IS LOW, SRX2, CALL LIGHT IN REACH, WILL CONTINUE PLAN OF CARE
[2020-03-24 20:00] VITALS: BP 119/57
[2020-03-25] VITALS: BP 120/78
--- NOTE | 2020-03-25 01:49 | NUR ---
I have reviewed this patient and I concur with the Shift Assessment completed by the Licensed Practical Nurse today this shift.
[2020-03-25 04:00] VITALS: BP 100/52
[2020-03-25 04:58] LABS: BASOPHILS 0.1 % (0-2); EOSINOPHILS 2.2 % (0-7); IMMATURE GRANULOCYTES 1.7 % (0-5); LYMPHOCYTES 23.1 % (15-50); MCH 26.2 pg (26.0-34.0); MCHC 31.7 g/dL (31.0-37.0); MCV 82.6 fL (80.0-100.0); MEAN PLATELET VOLUME 9.7 fL (7.4-10.4); MONOCYTES 9.8 % (2-11); NEUTROPHILS 63.1 % (40-80); PLATELET COUNT 314 10x3/uL (130-400); RDW 15.4 % (11.5-14.5); WBC 10.8 10x3/uL (4.8-10.8)
[2020-03-25 05:02] LABS: HEMATOCRIT 28.1 % (36.0-48.0); HEMOGLOBIN 8.9 g/dL (12-16)
[2020-03-25 05:15] LABS: ANION GAP 18.1 mmol/L (8-16); CALCIUM 8.5 mg/dL (8.5-10.1); CARBON DIOXIDE 22.1 mmol/L (21.0-32.0); CREATININE - SERUM 8.3 mg/dL (0.6-1.3)
[2020-03-25 05:23] LABS: POTASSIUM - SERUM 4.2 mmol/L (3.5-5.1)
--- NOTE | 2020-03-25 07:00 | NUR ---
RECEIVED REPORT. ASSUMED CARE OF PATIENT. RESTING IN BED WITH EYES CLOSED. RESP EVEN AND UNLABORED. NO DISTRESS. WOUND VAC PATENT.
[2020-03-25 10:12] VITALS: BP 121/46
[2020-03-25] MEDS ORDERED: LEVOFLOXACIN500 MG PO (10:54)
--- NOTE | 2020-03-25 11:45 | NUR ---
CALLED [facility] IN [place] AND ASKED THEM TO CANCEL THE CLINDAMYCIN RX, WHICH HAD BEEN ISSUED ON 03/23, THAT PT WAS TO FILL LEVAQUIN ONLY.
--- NOTE | 2020-03-25 11:51 | NUR ---
ASSISTED WITH MEAL SETUP. NO DISTRESS. CALL LIGHT WITHIN REACH.
--- NOTE | 2020-03-25 14:08 | NUR ---
ANTICIPATING ARRIVAL OF PATIENTS FAMILY AT 1500. PATIENT AWAITING FOR FAMILY TO ARRIVE TO DISCHARGE TO HOME. NO DISTRESS.
--- NOTE | 2020-03-25 14:20 | NUR ---
22 GAUGE IV REMOVED FROM RIGHT HAND. CATHETER TIP INTACT. NO BLEEDING FROM SITE. 2X2 GAUZE APPLIED AND SECURED WITH BANDAID. PATIENT TOLERATED IV REMOVAL WELL PATIENT IS DISCHARGING TO HOME.
--- NOTE | 2020-03-25 15:09 | NUR ---
DISCHARGE INSTRUCTIONS PROVIDED TO PATIENT. PATIENT VERBALIZED UNDERSTANDING OF ALL INSTURCTIONS PROVIDED. PATIENT AWARE OF THE NEED TO HAVE HER PAIN MEDICATION FILL[facility]
--- NOTE | 2020-03-25 15:21 | NUR ---
PATIENT IS NOW CONNECTED TO PORTABLE WOUND VAC. PATIENT WILL DISCHARGE TO HOME WITH THIS WOUND VAC.
--- NOTE | 2020-03-25 16:12 | NUR ---
PATIENT LEFT UNIT VIA WHEELCHAIR AT THIS TIME WITH HER SISTER. PATIENTS SISTER HAS LARGE [employer] BAG WITH EXTRA WOUND VAC CANISTERS AND DISCHARGE PAPERWORK INCLUDING WRITTEN SCRIPT FOR [place]CO. PATIENT IN NO DISTRESS UPON LEAVING UNIT.
--- NOTE | 2020-03-25 18:03 | MORECARE ---
CASE MANAGEMENT DISCHARGE SUMMARY PATIENT: JUSTA ARMSTRONG UNIT: [id number] ADM DATE: 03/20/20 AGE: 49 : 68 SEX: F ROOM/BED: D.210 AUTHOR: EFRAÍN,DOC PHYSICIAN: REFERRING PHYSICIAN: MANOLO MOSHER MD DATE OF SERVICE: 03/25/20 Discharge Plan Patient Name: JUSTA ARMSTRONG Facility: [facility]:[place] : 1970 Planned Disposition: Home with Home Health Anticipated Discharge Date: Discharge Date: 03/25/2020 Expected LOS: Initial Reviewer: [email or web address] Initial Review Date: 03/22/2020 Generated: 03/25/20 7:03 pm Comments DCP- Discharge Planning Updated by [id number]: Heather Santos on 03/25/20 4:[address] CM spoke with Maricruz and explained that patient has discharge orders for today. She stated [facility] her up. HARMONY contacted [facility] [phone] and notified of discharge and relayed Maricruz phone number to Eric Le. Eric was going to contact her to arrange time for delivery. CM called [facility] [phone] and spoke with director surface transportation nurse and she was aware of potential d/c. She stated they would be out to see patient 03/26 for dressing change. CM notified [employer] to retrieve patients wound vac and supplies from central supply. Patient signed [facility] form for receiving equipment and CM faxed record to [facility] gave copy to patient and placed one on hard chart. Appended by Heather Santos on 03/25/2020 17:58 CDT: HARMONY also notified Amy Maria Luisa of patients discharge today and that she will be back for dialysis in [place] on . DCP- Discharge Planning Updated by [email or web address]: Kathie Garcia on 03/23/20 1:[address] I called patient's sister, Maricruz, and spoke at length concerning discharge planning/needs. Patient's sister tells me that she will pick her up at discharge and she will be coming to her home to live. States her [place] [place] [address] [address], [place]. States I can use [facility] or whatever DME company can deliver to her home. I called [facility], and they state they do not have any wheelchairs and do not know when they will get any in. She tells me to call [facility]. I called [facility] and spoke with José Luis. José Luis states they can deliver to the sister's home even on the weekend and to call when patient is discharged. I faxed clinical and order to them for the wheelchair and shower chair. I did find out from the sister that the phone number on face sheet for daughter is incorrect and that it is [phone]. Her wound vac has been approved and will just need to print from [employer] and have central supply bring the home wound vac. Maricruz Armstrong - sister - call on DC [phone] [facility] - [phone] Fax - [phone] DCP- Discharge Planning Updated by [email or web address]: Kathie Garcia on 03/23/20 12:[address] CM spoke with Vangie Duarte APN for Dr. Jaramillo about discharge planning/needs. She states that she would like patient to go to a chcf. States she has had self neglect/career technical education instructor neglect and with her wound would need more care. I spoke with the patient and she declines chcf. She states that her brother and mother were in nursing homes and she is not going to go. She states that she is able to care for herself. States that she bathes and dresses her self and that her family did not know she had a wound until they noticed a smell. I informed Desire that patient was refusing chcf and she is cancelling discharge for now. I spoke with the daughter in the room when patient called her, she states she cannot speak with me right now, but will call me back. I gave her my number to call me and she has not returned my call. I called APS per Vangie's recommendation and spoke with Madelaine and reported self neglect/possible career technical education instructor neglect. CM will continue to follow and assist with discharge planning/needs. DCP- Discharge Planning Updated by [id number]: Kathie Garcia on 03/22/20 3:[address] Patient Name: JUSTA ARMSTRONG Admission Status: ER Accout number: [id number] Admission Date: 03-20-2020 : 1970 Admission Diagnosis:PRESSURE ULCER OF SACRAL REGION, STAGE 4 Attending: MANOLO MOSHER Current LOS: 2 Anticipated DC Date: Planned Disposition: Home with Home Health Primary Insurance: MEDICAID [place] Discharge Planning Comments: CM met with patient to discuss discharge planning/needs. I have received authorization for the home wound vac and will get it from when closer to [place]. She states she lives with her adult daughter and son. Her sister will take her home on discharge. She is asking for a walker and shower chair on discharge. I will need an order from attending physician for this. She states to use a [employer] in [place] for this and have it delivered. SHELLEY for [facility] for wound vac and [facility] signed. I called [facility] in [place] and spoke with Carol and clinical faxed. She has dialysis at [facility] on [address] at [address]. States she no longer drives, but has the [email or web address] bus transport her where she needs to go. I attempted to call her daughter and sister for further needs and left a message with my call back number. I notified Amy Hailey of admission. CM will continue to follow and assist with discharge planning/needs. [facility] - [address] Phone - [phone] [facility] [place] - Office - [phone] Fax - [phone] Rover Tender: Kathie Garcia DCP- Discharge Planning Updated by [email or web address]: Kathie Garcia on 03/22/20 10:[address] Wound vac clinical and order faxed to [facility]. DCPIA - Discharge Planning Initial Assessment Updated by [email or web address]: Kathie Garcia on 03/22/20 4:39 pm * Is the patient Alert and Oriented? Yes * How many steps to enter\exit or inside your home? 5/0 * PCP No PCP * Pharmacy [facility] in [place] * Preadmission Environment Home with Family * ADLs Partial Dependent * Partial ADLs (Assistance needed) Ambulation * Equipment Walker * List name and contact numbers for known caregivers / representatives who currently or will assist patient after discharge: Caitlin Toribio - JSOH - [phone] Maricruz Armstrong - sister - [phone] Jaylen Toribio - son * Verbal permission to speak to the caregivers and representatives has been obtained from the patient. Yes * Community resources currently utilized Other * Please name any agencies selected above. [facility] * Additional services required to return to the preadmission environment? Yes * Can the patient safely return to the preadmission environment? Yes * Has this patient been hospitalized within the prior 30 days at any hospital? No Coverage Notice Reviewer: [id number] Monie Garcia Notice Issued Date-Time: 03/22/2020 16:48 Notice Type: Patient Choice Letter Notice Delivered To: Patient Relationship to Patient: Self Parts Department Supervisor Name: Delivery Method: HAND - Hand Delivered Nadine Days: Prior Verbal Notification: Recipient Understood Notice: Yes Recipient Signature: Yes Med Rec Note Co-signed by Attending: Coverage Notice Comment: SHE[facility]LEY for [employer] [facility] Last DP export: 03/23/20 3:53 p Patient Name: JUSTA ARMSTRONG Page [id number] at 1803 All edits/amendments must be made on the electronic document DICTATION DATE: 03/25/201802 CREDIT ADMINISTRATION OFFICER: AMRIT 03/25/201802 RPT#: [id number] DC DATE:03/25/20 STATUS: DIS IN [facility] [address] [place] [address] END OF REPORT
== END 2020-03-25 16:16 | disposition home health service (06) | DRG 570 ==
LOC: D.ER 17:55 → D.M2 22:40
PROVIDERS: Family Medicine; Surgery; ADMIT Internal Medicine Nephrology; ATTEND Internal Medicine Nephrology
PROC: 0JB70ZZ Excision of Back Subcutaneous Tissue and Fascia, Open Approach (ICD-10-PCS; principal; 2020-03-21 11:45)
PROC: 5A1D70Z Performance of Urinary Filtration, Intermittent, Less than 6 Hours Per Day (ICD-10-PCS; 2020-03-21 11:45)
DX: L89.154 Pressure ulcer of sacral region, stage 4 (principal); N18.6 End stage renal disease; I13.2 Hypertensive heart and chronic kidney disease with heart failure and with stage 5 chronic kidney disease, or end stage renal disease; K61.1 Rectal abscess; E11.22 Type 2 diabetes mellitus with diabetic chronic kidney disease; I50.9 Heart failure, unspecified; Z99.2 Dependence on renal dialysis